=== PATIENT | female | born 1950 | race Caucasian/White ===

== ENCOUNTER 2020-03-27 09:28 | Inpatient (IN) | payer MEDICARE ==
[~2020-03-27] VITALS: Ht 165.1 cm; Wt 92.5 kg
[2020-03-27 10:15] LABS: BASOPHILS % (AUTO) 0.3 % (0.0-5.0); EOSINOPHILS % (AUTO) 0.1 % (0.0-8.0); HEMATOCRIT 36.6 % (36-48); MEAN CORPUSCULAR HEMOGLOBIN 29.9 pg (27.0-33.0); MEAN CORPUSCULAR HGB CONC 35.5 g/dL (32.0-36.0); MEAN CORPUSCULAR VOLUME 84.1 fL (79-99); MONOCYTES % (AUTO) 9.1 % (3.0-13.0); NEUTROPHILS % (AUTO) 85.1 % (40.0-77.0); PLATELET COUNT (AUTO) 194 K/uL (130-400); RED BLOOD CELL COUNT(AUTO) 4.35 MIL/uL (4.00-5.50)
[2020-03-27] MEDS ORDERED: ONDANSETRON HCL 4 MG/2 ML VIAL ONE (10:27)
[2020-03-27] MEDS ORDERED: MORPHINE SULFATE 4 MG/1ML SYG ONE ×2 (10:27→11:53)
[2020-03-27 10:40] LABS: BILIRUBIN,TOTAL 0.9 mg/dL (0.2-1.0); CREATININE 0.7 mg/dL (0.5-1.5); POTASSIUM 3.5 mmol/L (3.5-5.1); TOTAL PROTEIN, SERUM 6.9 g/dL (6.0-8.3)
[2020-03-27 10:54] LABS: APPEARANCE,URINE CLEAR (CLEAR); BILIRUBIN,URINE NEGATIVE (NEGATIVE); COLOR,URINE YELLOW (YELLOW); GLUCOSE, URINE (UA) NEGATIVE (NEGATIVE); KETONES,URINE 5 mg/dL (NEGATIVE); LEUKOCYTE ESTERASE ,URINE NEGATIVE (NEGATIVE); NITRATE,URINE NEGATIVE (NEGATIVE); OCCULT BLOOD,URINE SMALL (NEGATIVE); PROTEIN,URINE TRACE mg/dL (NEGATIVE); UROBILINOGEN,URINE 0.2 mg/dL (0.2-1.0)
[2020-03-27 11:14] LABS: BACTERIA,URINE Rare /HPF (None Seen); MUCUS,URINE Rare LPF (None Seen); RBC,URINE 0-1 /HPF (0-1); SQUAMOUS EPITHELIAL CELL,UR Rare /HPF (0-2); WBC,URINE 0-1 /HPF (0-1)
[2020-03-27] MEDS ORDERED: ETOMIDATE 2 MG/ML 10 ML VIAL ONE (11:16)
[2020-03-27] MEDS ORDERED: MIDAZOLAM HCL 5 MG/ML 2ML VIAL IV ONE (11:16)
[2020-03-27] MEDS ORDERED: SODIUM CHLORIDE 0.9% 1000ML 1,000 ML IV ONE (11:16)
[2020-03-27] MEDS ORDERED: ONDANSETRON HCL 4 MG/2 ML VIAL IVP PRN (12:30)
[2020-03-27] MEDS ORDERED: ACETAMINOPHEN-CODEINE 300/30MG TAB PO PRN (13:30)
[2020-03-27] MEDS ORDERED: ACETAMINOPHEN-CODEINE 300/30MG TAB ONE (13:44)
[2020-03-27] MEDS ORDERED: HYDRALAZINE HCL 20 MG/ML VIAL ONE (13:53)
[2020-03-27 14:45] VITALS: BP 178/53
[2020-03-27 14:54] LABS: THYROID STIMULATING HORMONE 2.06 uIU/mL (0.36-3.74)
[2020-03-27 16:00] VITALS: BP 139/68
[2020-03-27] MEDS: MORPHINE SULFATE 4 MG/1ML SYG IV PRN (16:53)
[2020-03-27 16:59] LABS: CREATININE 0.6 mg/dL (0.5-1.5); POTASSIUM 3.4 mmol/L (3.5-5.1)
[2020-03-27] MEDS ORDERED: POTASSIUM CHLORIDE 20MEQ/100ML 100 ML IV PRN (17:30)
[2020-03-27] MEDS ORDERED: LIDOCAINE HCL-MPF 1% 2ML VIAL IJ PRN (17:30)
[2020-03-27] MEDS ORDERED: POTASSIUM CHLORIDE 10% ELIXIR 20 MEQ/15 ML UDCUP PO PRN (17:30)
--- NOTE | 2020-03-27 17:45 | NUR ---
SPOKE TO DR TORREZ, HE IS AWARE OF CONSULT.
[2020-03-27 20:00] VITALS: BP 167/67
[2020-03-27] MEDS: SODIUM CHLORIDE 0.9% 1000ML 1,000 ML IV SCH (20:15)
[2020-03-27] MEDS: POTASSIUM CHLORIDE 20 MEQ ERTAB PO PRN ×2 (20:16→22:23)
[2020-03-27] MEDS: HYDRALAZINE HCL 20 MG/ML VIAL IV PRN (20:16)
[2020-03-27] MEDS: FAMOTIDINE/PF 20 MG/2 ML VIAL IV SCH (20:17)
[2020-03-27] MEDS ORDERED: DIVA500T52 PO (22:57)
[2020-03-27] MEDS ORDERED: ESOM20CA60 PO (22:57)
[2020-03-27] MEDS ORDERED: ASPI-1443 PO (22:57)
[2020-03-27] MEDS ORDERED: ATOR10 PO (22:57)
[2020-03-27] MEDS ORDERED: CITA-107 PO (22:57)
[2020-03-27] MEDS ORDERED: LISI1TAB29 PO (22:57)
[2020-03-27 23:01] LABS: CREATININE,URINE RANDOM 127 mg/dL (30-135); SODIUM,URINE RANDOM 39 mmol/l (40-220)
[2020-03-28] VITALS (8 sets, daily range): BP systolic 99–176; BP diastolic 59–72
[2020-03-28] MEDS: SODIUM CHLORIDE 0.9% 1000ML 1,000 ML IV SCH ×3 (01:29→17:53)
[2020-03-28 05:38] LABS: CREATININE 0.7 mg/dL (0.5-1.5); MAGNESIUM 1.9 mg/dL (1.80-2.40); POTASSIUM 3.8 mmol/L (3.5-5.1)
[2020-03-28] MEDS: MORPHINE SULFATE 4 MG/1ML SYG IV PRN ×2 (07:25→15:59)
[2020-03-28] MEDS: FAMOTIDINE/PF 20 MG/2 ML VIAL IV SCH ×2 (09:14→20:25)
[2020-03-28] MEDS: LISINOPRIL 20 MG TABLET PO SCH (13:24)
[2020-03-28] MEDS: HYDRALAZINE HCL 20 MG/ML VIAL IV PRN (17:03)
--- NOTE | 2020-03-28 19:03 | NUR ---
cm note- pt states lives alone, independent with adls and ambulation. No dme. No HH, pt can go with sister at pr, but prefers snf at [facility]. Choice letter obtained, will need MD order postop. cm to follow. Addendum: 03/28/20 at 1904 by ANIL VERGARA CM Amended: Links added.
[2020-03-28] MEDS: POTASSIUM CHLORIDE 20 MEQ ERTAB PO PRN (20:25)
[2020-03-28] MEDS: ATORVASTATIN CALCIUM 20 MG TABLET PO SCH (20:25)
[2020-03-28] MEDS: MORPHINE SULFATE 2 MG/ML 1ML SYG IVP PRN (20:30)
[2020-03-29] VITALS (7 sets, daily range): BP systolic 128–179; BP diastolic 55–65
[2020-03-29] MEDS: MORPHINE SULFATE 4 MG/1ML SYG IV PRN (02:08)
[2020-03-29] MEDS: HYDRALAZINE HCL 20 MG/ML VIAL IV PRN (04:07)
[2020-03-29] MEDS ORDERED: PANTOPRAZOLE SODIUM 40 MG TABLET.DR ONE (06:17)
[2020-03-29] MEDS: PANTOPRAZOLE SODIUM 40 MG TABLET.DR PO SCH (06:20)
[2020-03-29] MEDS: MORPHINE SULFATE 2 MG/ML 1ML SYG IVP PRN (06:31)
[2020-03-29 07:52] LABS: BASOPHILS % (AUTO) 0.3 % (0.0-5.0); EOSINOPHILS % (AUTO) 0.7 % (0.0-8.0); HEMATOCRIT 32.8 % (36-48); LYMPHOCYTES % (AUTO) 9.5 % (21.0-51.0); MEAN CORPUSCULAR HGB CONC 34.8 g/dL (32.0-36.0); MEAN CORPUSCULAR VOLUME 86.3 fL (79-99); MONOCYTES % (AUTO) 15.1 % (3.0-13.0); NEUTROPHILS % (AUTO) 74.1 % (40.0-77.0); PLATELET COUNT (AUTO) 158 K/uL (130-400); RED CELL DISTRIBUTION WIDTH 12.7 % (11.0-15.5); WHITE BLOOD COUNT (AUTO) 10.2 K/uL (4.8-10.8)
[2020-03-29 08:10] LABS: CREATININE 0.6 mg/dL (0.5-1.5); POTASSIUM 3.8 mmol/L (3.5-5.1)
[2020-03-29] MEDS: DIVALPROEX SODIUM 250 MG TABLET.DR PO SCH (09:20)
[2020-03-29] MEDS: LISINOPRIL 20 MG TABLET PO SCH (09:21)
[2020-03-29] MEDS: FAMOTIDINE/PF 20 MG/2 ML VIAL IV SCH ×2 (09:21→20:19)
--- NOTE | 2020-03-29 10:20 | NUR ---
DR. TENA PAGED AWARE OF PT IS CLEARED FOR SX ORDERS ENTERED.
[2020-03-29] MEDS: SODIUM CHLORIDE 0.9% 1000ML 1,000 ML IV SCH (12:47)
--- NOTE | 2020-03-29 14:45 | NUR ---
CM Note: DCP to GP pending MD order CM met w/pt still agreeable for GP after surgery. pending ORIF left ankle today w/Dr Mays. Pending MD order for SNF. Primary nurse aware. CM to cont to follow up.
[2020-03-29] MEDS: HYDROCODONE/ACETAMINOPHEN 5/325 MG TAB PO PRN ×2 (14:57→20:19)
[2020-03-29] MEDS: POTASSIUM CHLORIDE 20 MEQ ERTAB PO PRN ×2 (20:18→23:56)
[2020-03-29] MEDS: ATORVASTATIN CALCIUM 20 MG TABLET PO SCH (20:19)
[2020-03-29] MEDS ORDERED: LACTULOSE 20 GM/30 ML UDCUP PO PRN (20:45)
[2020-03-29] MEDS: POLYETHYLENE GLYCOL 3350 17 GM POWD.PACK PO SCH (21:23)
[2020-03-30] VITALS (27 sets, daily range): BP systolic 127–199; BP diastolic 51–82
--- NOTE | 2020-03-30 00:10 | NUR ---
03/29/20 1949: PATIENT COMPLAINING OF CONSTIPATION SINCE THE 8TH. ALSO REQUESTING FOR DNR ORDER TO BE PLACED IN DUE TO HAVING SURGERY TOMORROW. I PAGED AJ CAMP HOUSEKEEPER VIA ANSWERING SERVICE, ANSWERED WITHIN A FEW SECONDS.INFORMED HIM OF ABOVE, PATIENT'S COMPLAIN AND REQUEST, ALSO INFORMED HIM PATIENT STATES TAKEN MIRALIX ONE PACKET DAILY AT HOME TO PREVENT CONSTIPATION. ORDERS RECEIVED FOR MIRALIX, AND LACTULOSE. PATIENT MADE AWARE OF NEW ORDERS, VERBALIZED UNDERSTANDING. 2200: PATIENT'S SALINE LOCK SITE WITH SOME SWELLING, FLUSHED AGAIN, NOTED PATIENT WITH PAIN. PATIENT STATED WANTED SALINE LOCK REMOVED, BUT DID NOT WANT IT CHANGED TILL SURGERY TOMORROW. 0010: PATIENT HAD RECEIVED LAXATIVES, X2 03/29/20 2150, HAD LARGE BOWEL MOVEMENT AT THIS TIME.
[2020-03-30] MEDS: SODIUM CHLORIDE 0.9% 1000ML 1,000 ML IV SCH ×3 (00:33→20:20)
[2020-03-30] MEDS: HYDROCODONE/ACETAMINOPHEN 5/325 MG TAB PO PRN ×2 (03:28→12:28)
--- NOTE | 2020-03-30 03:28 | NUR ---
PATIENT REQUESTING MEDICATION FOR PAIN, REFUSED TO HAVE IV RESTARTED REQUESTED NORCO, TO BE SWALLOWED WITH SCANT AMOUNT OF WATER. PATIENT DRANK APPROXIMATELY 30 MLS.
[2020-03-30] MEDS: PANTOPRAZOLE SODIUM 40 MG TABLET.DR PO SCH (04:40)
[2020-03-30 06:06] LABS: BASOPHILS % (AUTO) 0.2 % (0.0-5.0); EOSINOPHILS % (AUTO) 3.8 % (0.0-8.0); HEMATOCRIT 31.6 % (36-48); LYMPHOCYTES % (AUTO) 15.7 % (21.0-51.0); MEAN CORPUSCULAR HEMOGLOBIN 29.4 pg (27.0-33.0); MEAN CORPUSCULAR HGB CONC 33.9 g/dL (32.0-36.0); MEAN CORPUSCULAR VOLUME 86.8 fL (79-99); MONOCYTES % (AUTO) 12.5 % (3.0-13.0); NEUTROPHILS % (AUTO) 67.5 % (40.0-77.0); PLATELET COUNT (AUTO) 168 K/uL (130-400); RED BLOOD CELL COUNT(AUTO) 3.64 MIL/uL (4.00-5.50); RED CELL DISTRIBUTION WIDTH 12.8 % (11.0-15.5); WHITE BLOOD COUNT (AUTO) 9.5 K/uL (4.8-10.8)
[2020-03-30 06:28] LABS: INR 0.91 (0.85-1.15); PARTIAL THROMBOPLASTIN TIME 27.7 SEC (26.3-35.5); PROTHROMBIN TIME 9.9 SEC (9.6-11.6)
[2020-03-30 06:36] LABS: BILIRUBIN,TOTAL 0.9 mg/dL (0.2-1.0); CREATININE 0.5 mg/dL (0.5-1.5); POTASSIUM 4.6 mmol/L (3.5-5.1); TOTAL PROTEIN, SERUM 5.8 g/dL (6.0-8.3)
[2020-03-30] MEDS: LISINOPRIL 20 MG TABLET PO SCH (07:25)
[2020-03-30] MEDS: MORPHINE SULFATE 4 MG/1ML SYG IV PRN (08:51)
[2020-03-30] MEDS: HYDRALAZINE HCL 20 MG/ML VIAL IV PRN ×2 (11:56→15:41)
[2020-03-30] MEDS ORDERED: LACTATED RINGERS 1000ML 1,000 ML IV ONE (12:48)
[2020-03-30] MEDS ORDERED: FENTANYL CITRATE PF 50 MCG/1 ML 5ML AMP IV ONE (13:35)
[2020-03-30] MEDS ORDERED: LIDOCAINE PF 2% 5ML ABBOJECT ONE (13:35)
[2020-03-30] MEDS ORDERED: PROPOFOL 10 MG/ML 20ML VIAL IV ONE (13:35)
[2020-03-30] MEDS ORDERED: MIDAZOLAM HCL 1 MG/ML 2ML VIAL ONE (13:35)
[2020-03-30] MEDS ORDERED: ROCURONIUM 10MG/1ML SYR 10 MG/ML ML ONE (13:35)
[2020-03-30] MEDS ORDERED: FENTANYL CITRATE PF 50 MCG/1 ML 2ML VIAL ONE (13:42)
--- NOTE | 2020-03-30 13:45 | NUR ---
ANESTHESIA patient c/o pain left ankle ,Enrique Devries OUTREACH MANAGER ordered pain med given by Sami Fallon RN Addendum: 03/30/20 at 1352 by JANNIE THURMAN RN RN Amended: Links added.
[2020-03-30] MEDS ORDERED: KETAMINE 50MG/ML SYRINGE 50 MG/ML DISP.SYRIN IV ONE (13:52)
[2020-03-30] MEDS ORDERED: CEFAZOLIN SODIUM 1 GM VIAL IVP ONE (14:10)
[2020-03-30] MEDS ORDERED: ONDANSETRON HCL 4 MG/2 ML VIAL ONE (14:55)
[2020-03-30] MEDS ORDERED: DEXAMETHASONE SOD PHOSPHATE 10MG/ML 1ML VIAL ONE (14:55)
[2020-03-30] MEDS ORDERED: NEOSTIGMINE 5MG/5ML SYR IV ONE (14:55)
[2020-03-30] MEDS ORDERED: GLYCOPYRROLATE 1 MG/5 ML SYRINGE ONE (14:55)
[2020-03-30] MEDS ORDERED: METOPROLOL TARTRATE 1 MG/ML 5ML VIAL IV ONE (15:15)
[2020-03-30] MEDS ORDERED: LABETALOL 20 MG/4 ML DISP.SYRIN IV ONE (15:48)
--- NOTE | 2020-03-30 16:40 | NUR ---
CM NOTE/GP REFERRAL NEW ORDER FOR SNF, KATT SIGNED PREVIOUSLY FOR [facility] PACKET AND COVID ASSESSMENT FAXED AND CONFIRMED RECEIVED. PENDING PASRR. JUAN MADE AWARE, WILL REVIEW. PATIENT PENDING PT EVAL AND NOTES. CM TO FOLLOW, PENDING APPROVAL.
[2020-03-30] MEDS: FAMOTIDINE/PF 20 MG/2 ML VIAL IV SCH ×2 (18:15→20:18)
[2020-03-30] MEDS: POLYETHYLENE GLYCOL 3350 17 GM POWD.PACK PO SCH (18:15)
[2020-03-30] MEDS: DIVALPROEX SODIUM 250 MG TABLET.DR PO SCH (18:15)
[2020-03-30] MEDS: ATORVASTATIN CALCIUM 20 MG TABLET PO SCH (20:18)
--- NOTE | 2020-03-30 20:20 | NUR ---
MEDS SHIFT ASSESSMENT DONE, PLEASE REFER TO CHART. PT COMPLAINTS OF POST OP PAINS. DUE MEDS ADMINISTERED, TYLENOL #3 GIVEN FOR PAINS. COLD PACKS APPLIED TO LEFT ANKLE SX SITE. KEPT ELEVATED IN BED. CALL LIGHT WITHIN REACH. WILL RE-ASSESS PT. Addendum: 03/30/20 at 2316 by ZAMZAM MADRID RN RN Amended: Links added.
[2020-03-30] MEDS: MORPHINE SULFATE 2 MG/ML 1ML SYG IVP PRN (22:59)
--- NOTE | 2020-03-30 22:59 | NUR ---
PAIN PT CALLS FOR PAIN MEDICATION. PCP IN AND RE-POSITIONED PT'S FEET. KEPT COLD PACKS ON LEFT ANKLE. V/S MONITORED, STABLE. MEDICATED WITH MORPHINE IV. WILL RE-ASSESS PT.
[2020-03-31] MEDS: SODIUM CHLORIDE 0.9% 1000ML 1,000 ML IV SCH ×2 (00:05→07:12)
--- NOTE | 2020-03-31 01:54 | NUR ---
ROUNDS PT RESTING WELL, FAIRLY ASLEEP WITH RESPIRATIONS EVEN AND UNLABORED. NO NOTED DISTRESS. KEPT UNDISTURBED FOR NOW. CALL LIGHT WITHIN REACH. WILL MONITOR PT.
[2020-03-31] MEDS: HYDRALAZINE HCL 20 MG/ML VIAL IV PRN (02:36)
[2020-03-31] MEDS: HYDROCODONE/ACETAMINOPHEN 5/325 MG TAB PO PRN ×2 (02:36→14:45)
[2020-03-31 03:00] VITALS: BP 164/63
[2020-03-31] MEDS: PANTOPRAZOLE SODIUM 40 MG TABLET.DR PO SCH (05:57)
[2020-03-31 06:15] LABS: HEMATOCRIT 33.5 % (36-48); LYMPHOCYTES % (AUTO) 5.2 % (21.0-51.0); MEAN CORPUSCULAR HEMOGLOBIN 29.1 pg (27.0-33.0); MEAN CORPUSCULAR HGB CONC 33.7 g/dL (32.0-36.0); MEAN CORPUSCULAR VOLUME 86.3 fL (79-99); MONOCYTES % (AUTO) 6.3 % (3.0-13.0); PLATELET COUNT (AUTO) 206 K/uL (130-400); RED BLOOD CELL COUNT(AUTO) 3.88 MIL/uL (4.00-5.50); RED CELL DISTRIBUTION WIDTH 12.8 % (11.0-15.5); WHITE BLOOD COUNT (AUTO) 11.3 K/uL (4.8-10.8)
[2020-03-31 06:27] LABS: BILIRUBIN,TOTAL 0.8 mg/dL (0.2-1.0); CREATININE 0.7 mg/dL (0.5-1.5); POTASSIUM 4.2 mmol/L (3.5-5.1)
[2020-03-31] MEDS: MORPHINE SULFATE 2 MG/ML 1ML SYG IVP PRN (06:27)
--- NOTE | 2020-03-31 06:27 | NUR ---
PAIN PT COMPLAINTS OF PAINS TO SX FOOT AREA. MEDICATED WITH MORPHINE IV. KEPT LEG ELEVATED. PT REFUSED SCD'S FOR NOW. TURNED OF MACHINE. COLD PACKS APPLIED TO SX SITE ON LEFT FOOT. ENCOURAGED TO RELAX AND TAKE DEEP BREATH.
[2020-03-31 08:00] VITALS: BP 160/60
--- NOTE | 2020-03-31 08:00 | NUR ---
AM SHIFT ASSESSMENT. SLINT/CAST IN PLACE TO LT. LOWER LEG. TOES ARE EXPOSED WITH GOOD COLOR AND ARE WARM TO TOUCH , ABLE TO WIGGLE THEM EASY.
--- NOTE | 2020-03-31 09:00 | NUR ---
IVF STOPPED NOW PER ORDER OF .
[2020-03-31] MEDS: DIVALPROEX SODIUM 250 MG TABLET.DR PO SCH (09:19)
[2020-03-31] MEDS: POLYETHYLENE GLYCOL 3350 17 GM POWD.PACK PO SCH (09:19)
[2020-03-31] MEDS: FAMOTIDINE/PF 20 MG/2 ML VIAL IV SCH (09:19)
[2020-03-31] MEDS: LISINOPRIL 20 MG TABLET PO SCH (09:19)
[2020-03-31 12:00] VITALS: BP 125/62
--- NOTE | 2020-03-31 14:05 | NUR ---
CM NOTE/GP APPROVED PER JUAN AT [facility], PATIENT APPROVED AT FACILITY. WILL TRANSFER VIA EMS, PRIMARY NURSE LEI JONES, MADE AWARE.
[2020-03-31 16:00] VITALS: BP 157/59
--- NOTE | 2020-03-31 18:26 | NUR ---
REPORT CALLED IN EARLIER TO [facility], TALKED TO HERRERA YANCEY LVN. PT. NOW DISCHARGED TO [facility], SALINE LOCK REMOVED AND DISCHARGE INST EXPLAINED, VERBALIZES UNDERSTANDING.
== END 2020-03-31 18:25 | DRG 493 ==
LOC: EDH 09:28 → EDHIP 12:23 → 3AH 14:01
PROVIDERS: ADMIT Internal Medicine; ATTEND Internal Medicine
PROC: 0QSK04Z Reposition Left Fibula with Internal Fixation Device, Open Approach (ICD-10-PCS; principal; 2020-03-30 13:53)
PROC: BW1C1ZZ Fluoroscopy of Lower Extremity using Low Osmolar Contrast (ICD-10-PCS; 2020-03-30 13:53)
DX: S82.842A Displaced bimalleolar fracture of left lower leg, initial encounter for closed fracture (principal); E22.2 Syndrome of inappropriate secretion of antidiuretic hormone; M62.82 Rhabdomyolysis; F31.9 Bipolar disorder, unspecified; E87.8 Other disorders of electrolyte and fluid balance, not elsewhere classified; N19 Unspecified kidney failure; E87.6 Hypokalemia; I10 Essential (primary) hypertension; I25.10 Atherosclerotic heart disease of native coronary artery without angina pectoris; D72.829 Elevated white blood cell count, unspecified; W19.XXXA Unspecified fall, initial encounter; Y93.89 Activity, other specified; Y92.89 Other specified places as the place of occurrence of the external cause; Y99.8 Other external cause status; X50.1XXA Overexertion from prolonged static or awkward postures, initial encounter; Z87.891 Personal history of nicotine dependence; Z90.710 Acquired absence of both cervix and uterus
CPT/HCPCS: 36415; 71045; 72170; 73600; 73610; 80048; 80053; 81001; 82550; 82570; 83735; 83880; 83935; 84145; 84300; 84443; 84484; 84540; 85025; 85610; 85730; 93005; 96374; 97039; G0378; J0360; J0690; J1100; J2001; J2250; J2270; J2405; J2704; J2710; J3010; J3480; J3490; J7030; J7120

== ENCOUNTER → 2022-10-24 | Outpatient (CLI) | payer MEDICARE, OTHER ==
[~2022-10-24] MED LIST: ASPI-1443 PO; ATOR10 PO; CITA-107 PO; DIVA500T52 PO; ESOM20CA60 PO; LISI1TAB53 PO
[2022-10-24 11:41] LABS: ALBUMIN 3.7 g/dL (3.5-5.0); CREATININE 1.2 mg/dL (0.5-1.5); POTASSIUM 3.9 mmol/L (3.5-5.1); THYROID STIMULATING HORMONE 0.91 uIU/mL (0.36-3.74); TOTAL PROTEIN, SERUM 7.1 g/dL (6.0-8.3)
== END | disposition home or self-care (01) ==
LOC: RAH 10:05
PROVIDERS: ATTEND Student in an Organized Health Care Education/Training Program
DX: I10 Essential (primary) hypertension (principal); E78.2 Mixed hyperlipidemia; I73.9 Peripheral vascular disease, unspecified; R42 Dizziness and giddiness; R00.2 Palpitations
CPT/HCPCS: 80053; 80061; 84443; 93925

== ENCOUNTER → 2022-11-08 | Outpatient (CLI) | payer OTHER ==
[~2022-11-08] MED LIST changes: +B CO PO; +CILO100T3 PO; +CILO50TA2 PO; +CLOP-31 PO; +DULO60CA45 PO; +LANS30CA53 PO; +LISI20TA24 PO; +MAGN400T25 PO; +OMEP20TA2 PO; +PANT40TA54 PO; +QUET200T30 PO; +SUCR1TAB28 PO; +[UNRECOGNIZED DRUG - OTHER] PO
== END | disposition home or self-care (01) ==
LOC: SHCH 10:00
PROVIDERS: ATTEND Student in an Organized Health Care Education/Training Program
DX: R01.1 Cardiac murmur, unspecified (principal)
CPT/HCPCS: 93306

== ENCOUNTER 2022-11-12 02:54 | Emergency (ER) | payer OTHER ==
[~2022-11-12] VITALS: Ht 160 cm; Wt 77.1 kg
[~2022-11-12 02:54] MED LIST changes: -ASPI-1443 PO; -B CO PO; -CILO100T3 PO; -CILO50TA2 PO; -CITA-107 PO; -DIVA500T52 PO; -ESOM20CA60 PO; -LANS30CA53 PO; -LISI1TAB53 PO; -MAGN400T25 PO; -OMEP20TA2 PO
[2022-11-12 04:00] LABS: BASOPHILS % (AUTO) 0.7 % (0.0-5.0); HEMATOCRIT 30.8 % (36-48); LYMPHOCYTES % (AUTO) 22.7 % (21.0-51.0); MEAN CORPUSCULAR HGB CONC 28.9 g/dL (32.0-36.0); MEAN CORPUSCULAR VOLUME 69.4 fL (79-99); MONOCYTES % (AUTO) 7.6 % (3.0-13.0); NEUTROPHILS % (AUTO) 64.3 % (40.0-77.0); PLATELET COUNT (AUTO) 339 K/uL (130-400); RED BLOOD CELL COUNT(AUTO) 4.44 MIL/uL (4.00-5.50); RED CELL DISTRIBUTION WIDTH 20.7 % (11.0-15.5); WHITE BLOOD COUNT (AUTO) 7.6 K/uL (4.8-10.8)
[2022-11-12 04:18] LABS: CARBON DIOXIDE 28 mmol/L (21-32); CHLORIDE 101 mmol/L (101-111); GLOMERULAR FILTR. RATE CALC 58 mL/min (>60); GLUCOSE,RANDOM 131 mg/dL (70-105); POTASSIUM 3.5 mmol/L (3.5-5.1); SODIUM SERUM 139 mmol/L (136-145); UREA NITROGEN, BLOOD 9 mg/dL (7-18)
[2022-11-12 04:22] LABS: PROTHROMBIN TIME 10.9 SEC (9.6-11.6)
[2022-11-12 04:23] LABS: PARTIAL THROMBOPLASTIN TIME 25.4 SEC (26.3-35.5)
[2022-11-12 04:27] LABS: ALANINE AMINOTRANSFERASE 37 U/L (12-78); ALBUMIN 3.3 g/dL (3.5-5.0); ALCOHOL, BLOOD < 3 mg/dL (0-10); ASPARTATE AMINOTRANSFERASE 27 U/L (10-37); TOTAL PROTEIN, SERUM 6.1 g/dL (6.0-8.3)
[2022-11-12] MEDS ORDERED: GABAPENTIN 300 MG CAPSULE ONE (04:50)
[2022-11-12] MEDS ORDERED: KCL 20 MEQ ERTAB PO ONE (05:00)
[2022-11-12] MEDS ORDERED: MAGNESIUM 2GM PREMIX 50ML 50 ML IV SCH (05:00)
[2022-11-12] MEDS ORDERED: MAGN400T25 PO (05:53)
[2022-11-12 07:35] VITALS: BP 110/72
[2022-11-12] MEDS ORDERED: GABAPENTIN 300 MG CAPSULE PO SCH (09:00)
== END 2022-11-12 07:49 | disposition home or self-care (01) ==
LOC: EDH 02:54
DX: E83.42 Hypomagnesemia (principal); M62.838 Other muscle spasm; I10 Essential (primary) hypertension; E11.51 Type 2 diabetes mellitus with diabetic peripheral angiopathy without gangrene; Z79.82 Long term (current) use of aspirin; Z79.899 Other long term (current) drug therapy; Z90.710 Acquired absence of both cervix and uterus; Z90.49 Acquired absence of other specified parts of digestive tract
CPT/HCPCS: 99284; 96365; 83735; 80053; 85025; 85610; 85730; 83605; 82010; 36415; J3475

== ENCOUNTER 2023-01-02 06:02 | Day surgery (SDC) | payer OTHER ==
[2022-12-29 10:14] LABS: BASOPHILS % (AUTO) 0.6 % (0.0-5.0); HEMATOCRIT 39.2 % (36-48); LYMPHOCYTES % (AUTO) 14.4 % (21.0-51.0); MEAN CORPUSCULAR HEMOGLOBIN 24.5 pg (27.0-33.0); MEAN CORPUSCULAR HGB CONC 30.6 g/dL (32.0-36.0); MEAN CORPUSCULAR VOLUME 80.2 fL (79-99); MONOCYTES % (AUTO) 7.5 % (3.0-13.0); NEUTROPHILS % (AUTO) 74.1 % (40.0-77.0); PLATELET COUNT (AUTO) 246 K/uL (130-400); RED BLOOD CELL COUNT(AUTO) 4.89 MIL/uL (4.00-5.50); RED CELL DISTRIBUTION WIDTH 24.4 % (11.0-15.5); WHITE BLOOD COUNT (AUTO) 5.4 K/uL (4.8-10.8)
[2022-12-29 10:18] VITALS: BP 194/90
[2022-12-29 10:21] LABS: CREATININE 0.8 mg/dL (0.5-1.5); POTASSIUM 3.9 mmol/L (3.5-5.1)
[2022-12-29 10:23] LABS: APPEARANCE,URINE CLEAR (CLEAR); BILIRUBIN,URINE NEGATIVE (NEGATIVE); COLOR,URINE LIGHT-YELLOW (YELLOW); GLUCOSE, URINE (UA) NEGATIVE (NEGATIVE); KETONES,URINE NEGATIVE (NEGATIVE); LEUKOCYTE ESTERASE ,URINE NEGATIVE Leu/uL (NEGATIVE); NITRATE,URINE NEGATIVE (NEGATIVE); OCCULT BLOOD,URINE NEGATIVE (NEGATIVE); PROTEIN,URINE NEGATIVE (NEGATIVE); UROBILINOGEN,URINE 0.2 mg/dL (0.2-1.0)
[2022-12-29 10:24] LABS: INR 0.94 (0.85-1.15); PROTHROMBIN TIME 10.3 SEC (9.6-11.6)
[2022-12-29 10:25] LABS: PARTIAL THROMBOPLASTIN TIME 25.7 SEC (26.3-35.5)
[2022-12-29 10:51] LABS: B-TYPE NATRIURETIC PEPTIDE 47 pg/mL (0-100)
[2023-01-02] VITALS (10 sets, daily range): BP systolic 105–164; BP diastolic 45–91
[~2023-01-02] VITALS: Ht 160 cm; Wt 77.1 kg
[~2023-01-02 06:02] MED LIST changes: +MAGN400T25 PO
[2023-01-02] MEDS ORDERED: 0.9%NACL 1000ML 1,000 ML IV ONE (06:09)
[2023-01-02] MEDS ORDERED: FENTANYL CITRATE PF 50 MCG/1 ML 2ML VIAL ONE (07:07)
[2023-01-02] MEDS ORDERED: NITROGLYCERIN 50MG VIAL ONE (07:07)
[2023-01-02] MEDS ORDERED: MIDAZOLAM HCL 1 MG/ML 2ML VIAL ONE ×2 (07:07→07:45)
[2023-01-02] MEDS ORDERED: IODIXANOL 320 MG/ML 100 ML VIAL ONE (07:07)
[2023-01-02] MEDS ORDERED: HEPARIN 10,000 UNIT/10ML (1,000 UNIT/ML) VIAL ONE (07:07)
[2023-01-02] MEDS ORDERED: LIDOCAINE HCL 400MG/20ML VIAL ONE (07:08)
[2023-01-02] MEDS ORDERED: DiphenhydrAMINE HCL 50 MG/ML VIAL ONE (07:43)
[2023-01-02] MEDS ORDERED: HYDRALAZINE 20MG/ML VIAL ONE ×2 (07:51→08:38)
[2023-01-02] MEDS ORDERED: NICARDIPINE 25MG INJ IV ONE (08:10)
[2023-01-02] MEDS ORDERED: LABETALOL 20MG SYG IV ONE (08:12)
[2023-01-02] MEDS ORDERED: GLUCAGON 1MG KIT 1 MG ML IM PRN (08:30)
[2023-01-02] MEDS ORDERED: DEXTROSE 50%-WATER 50 ML DISP.SYRIN IV PRN (08:30)
[2023-01-02] MEDS ORDERED: 0.9%NACL 1000ML 1,000 ML IV SCH (08:30)
[2023-01-02] MEDS ORDERED: TRAZ-187 PO (13:22)
[2023-01-02] MEDS ORDERED: POTA-79 PO (13:22)
[2023-01-02] MEDS ORDERED: FURO20TA6 PO (13:22)
== END 2023-01-02 16:33 | disposition home or self-care (01) ==
LOC: DAH 06:02
PROVIDERS: ATTEND Student in an Organized Health Care Education/Training Program
DX: I70.213 Atherosclerosis of native arteries of extremities with intermittent claudication, bilateral legs (principal); I25.810 Atherosclerosis of coronary artery bypass graft(s) without angina pectoris; I10 Essential (primary) hypertension; E78.2 Mixed hyperlipidemia; Z98.890 Other specified postprocedural states; Z79.899 Other long term (current) drug therapy; Z90.49 Acquired absence of other specified parts of digestive tract; Z79.82 Long term (current) use of aspirin; Z90.710 Acquired absence of both cervix and uterus; Z79.01 Long term (current) use of anticoagulants; Z87.891 Personal history of nicotine dependence; Z80.49 Family history of malignant neoplasm of other genital organs
CPT/HCPCS: 80048; 83880; 85025; 85610; 85730; 81003; 36415; 71045; 93005; 75716; 36246; 96360; 96361; C1894 ×2; C1769; J1200; J3010; J3490 ×3; J7030; J0360 ×2; J2250; J1644; Q9967; A4215; A4335; A4222; A4221; A4663; A4216; A4606; A4223 ×3; A4520; A4554; 99156; 99157

== ENCOUNTER → 2023-02-21 | Outpatient (CLI) | payer OTHER ==
[~2023-02-21] MED LIST changes: +CARV6.25 PO; +CILO100T3 PO; -CLOP-31 PO; +CLOP75TA32 PO; +FERR324T PO; +FOLI1TAB85 PO; +FURO20TA6 PO; -LISI20TA24 PO; +LISI40TA9 PO; -MAGN400T25 PO; +POTA-79 PO; -QUET200T30 PO; -SUCR1TAB28 PO; +TRAZ-187 PO; -[UNRECOGNIZED DRUG - OTHER] PO
[2023-02-21 12:20] LABS: BASOPHILS % (AUTO) 0.8 % (0.0-5.0); EOSINOPHILS % (AUTO) 10.6 % (0.0-8.0); HEMATOCRIT 37.8 % (36-48); LYMPHOCYTES % (AUTO) 12.5 % (21.0-51.0); MEAN CORPUSCULAR HEMOGLOBIN 27.9 pg (27.0-33.0); MEAN CORPUSCULAR HGB CONC 31.7 g/dL (32.0-36.0); MEAN CORPUSCULAR VOLUME 87.9 fL (79-99); MONOCYTES % (AUTO) 8.7 % (3.0-13.0); NEUTROPHILS % (AUTO) 67.1 % (40.0-77.0); PLATELET COUNT (AUTO) 355 K/uL (130-400); RED CELL DISTRIBUTION WIDTH 14.5 % (11.0-15.5); WHITE BLOOD COUNT (AUTO) 9.9 K/uL (4.8-10.8)
[2023-02-21 12:42] LABS: ALBUMIN 3.9 g/dL (3.5-5.0); CREATININE 1.4 mg/dL (0.5-1.5); POTASSIUM 4.7 mmol/L (3.5-5.1); TOTAL PROTEIN, SERUM 7.3 g/dL (6.0-8.3)
[2023-02-21 12:44] LABS: % IRON SATURATION 13.8 % (22-44)
== END | disposition home or self-care (01) ==
LOC: LAB 10:02
PROVIDERS: ATTEND Student in an Organized Health Care Education/Training Program
DX: I73.9 Peripheral vascular disease, unspecified (principal); E78.2 Mixed hyperlipidemia; E11.9 Type 2 diabetes mellitus without complications; I10 Essential (primary) hypertension; Z79.899 Other long term (current) drug therapy
CPT/HCPCS: 36415; 80053; 80061; 82746; 83036; 83540; 83550; 85025

== ENCOUNTER → 2023-02-27 | Outpatient (CLI) | payer OTHER ==
[~2023-02-27] MED LIST changes: +POLY17PO4 PO; +SUCR1TAB2 PO
== END | disposition home or self-care (01) ==
LOC: RAH 14:15
PROVIDERS: ATTEND Student in an Organized Health Care Education/Training Program
DX: M79.81 Nontraumatic hematoma of soft tissue (principal)
CPT/HCPCS: 76882

== ENCOUNTER 2023-03-01 22:35 | Inpatient (IN) | payer OTHER ==
[~2023-03-01] VITALS: Ht 160 cm; Wt 78.0 kg
[~2023-03-01 22:35] MED LIST changes: -POLY17PO4 PO; -SUCR1TAB2 PO
[2023-03-01 23:05] VITALS: BP 130/54
[2023-03-01] MEDS ORDERED: MORPHINE 4 MG SYG IV PRN (23:30)
[2023-03-01] MEDS ORDERED: LACTATED RINGERS 1000ML 1,000 ML IV SCH (23:30)
[2023-03-01] MEDS ORDERED: ONDANSETRON 4MG INJ IV PRN (23:30)
[2023-03-01] MEDS ORDERED: MORPHINE 2 MG SYG IV PRN (23:30)
[2023-03-01] MEDS ORDERED: ACETAMINOPHEN 325 MG TAB PO PRN ×2 (23:30)
[2023-03-01] MEDS ORDERED: VANCOMYCIN 1G/250ML KIT 250 ML IV ONE (23:45)
[2023-03-02] MEDS ORDERED: VANCOMYCIN PROTOCOL PER PHARMACY IV SCH
[2023-03-02 00:01] LABS: BASOPHILS % (AUTO) 0.7 % (0.0-5.0); EOSINOPHILS % (AUTO) 8.5 % (0.0-8.0); HEMATOCRIT 28.8 % (36-48); MEAN CORPUSCULAR HEMOGLOBIN 27.8 pg (27.0-33.0); MEAN CORPUSCULAR HGB CONC 31.6 g/dL (32.0-36.0); MEAN CORPUSCULAR VOLUME 88.1 fL (79-99); MONOCYTES % (AUTO) 12.4 % (3.0-13.0); NEUTROPHILS % (AUTO) 60.2 % (40.0-77.0); PLATELET COUNT (AUTO) 225 K/uL (130-400); RED BLOOD CELL COUNT(AUTO) 3.27 MIL/uL (4.00-5.50); RED CELL DISTRIBUTION WIDTH 13.2 % (11.0-15.5); WHITE BLOOD COUNT (AUTO) 5.9 K/uL (4.8-10.8)
[2023-03-02 00:20] LABS: CREATININE 1.2 mg/dL (0.5-1.5); TOTAL PROTEIN, SERUM 5.9 g/dL (6.0-8.3)
[2023-03-02 00:33] LABS: POTASSIUM 2.7 mmol/L (3.5-5.1)
[2023-03-02 00:34] LABS: B-TYPE NATRIURETIC PEPTIDE 14 pg/mL (0-100)
[2023-03-02] MEDS ORDERED: POLY17PO4 PO (00:41)
[2023-03-02] MEDS: CEFEPIME HCL 1 GM VIAL IVP SCH ×3 (00:57→16:28)
[2023-03-02] MEDS ORDERED: KCL 20 MEQ ERTAB PO ONE (02:00)
[2023-03-02 03:34] VITALS: BP 132/67
[2023-03-02 04:50] LABS: APPEARANCE,URINE CLEAR (CLEAR); BILIRUBIN,URINE NEGATIVE (NEGATIVE); COLOR,URINE COLORLESS (YELLOW); GLUCOSE, URINE (UA) NEGATIVE (NEGATIVE); KETONES,URINE NEGATIVE (NEGATIVE); LEUKOCYTE ESTERASE ,URINE NEGATIVE Leu/uL (NEGATIVE); NITRATE,URINE NEGATIVE (NEGATIVE); OCCULT BLOOD,URINE NEGATIVE (NEGATIVE); PH,URINE 5.5 (5.0-8.0); PROTEIN,URINE NEGATIVE (NEGATIVE); UROBILINOGEN,URINE 0.2 mg/dL (0.2-1.0)
[2023-03-02] MEDS ORDERED: ZOSYN 3.375GM+NS 50ML 50 ML IVPB SCH (05:00)
[2023-03-02 06:33] VITALS: BP 133/60
[2023-03-02 07:13] LABS: BASOPHILS % (AUTO) 0.6 % (0.0-5.0); EOSINOPHILS % (AUTO) 7.7 % (0.0-8.0); HEMATOCRIT 28.1 % (36-48); LYMPHOCYTES % (AUTO) 16.3 % (21.0-51.0); MEAN CORPUSCULAR HEMOGLOBIN 27.9 pg (27.0-33.0); MEAN CORPUSCULAR HGB CONC 31.7 g/dL (32.0-36.0); MEAN CORPUSCULAR VOLUME 88.1 fL (79-99); MONOCYTES % (AUTO) 9.7 % (3.0-13.0); NEUTROPHILS % (AUTO) 65.3 % (40.0-77.0); PLATELET COUNT (AUTO) 192 K/uL (130-400); RED BLOOD CELL COUNT(AUTO) 3.19 MIL/uL (4.00-5.50); RED CELL DISTRIBUTION WIDTH 13.2 % (11.0-15.5); WHITE BLOOD COUNT (AUTO) 4.7 K/uL (4.8-10.8)
[2023-03-02 07:36] LABS: INR 0.97 (0.85-1.15); PROTHROMBIN TIME 10.6 SEC (9.6-11.6)
[2023-03-02 07:37] LABS: PARTIAL THROMBOPLASTIN TIME 25.9 SEC (26.3-35.5)
[2023-03-02 07:41] LABS: CREATININE 0.9 mg/dL (0.5-1.5); MAGNESIUM 1.6 mg/dL (1.80-2.40); PHOSPHORUS 3.8 mg/dL (2.5-4.9); POTASSIUM 3.9 mmol/L (3.5-5.1)
[2023-03-02] MEDS: HEPARIN 5,000 UNIT VIAL SQ SCH ×2 (08:12→08:13)
[2023-03-02] MEDS ORDERED: FAMOTIDINE 20MG VIAL IV SCH (09:00)
[2023-03-02] MEDS ORDERED: MAGNESIUM 2GM PREMIX 50ML 50 ML IV PRN (10:30)
[2023-03-02 12:09] VITALS: BP 151/73
[2023-03-02] MEDS ORDERED: LIDOCAINE HCL 1% 20 ML VIAL ONE (15:57)
[2023-03-02 16:00] VITALS: BP 151/73
[2023-03-02] MEDS ORDERED: VANCOMYCIN 1G/250ML KIT 250 ML IV SCH (21:00)
[2023-03-03] MEDS ORDERED: KCL 20 MEQ ERTAB PO SCH (09:00)
[2023-03-05] MEDS ORDERED: SUCR1TAB2 PO (22:45)
== END 2023-03-02 17:25 | disposition left against medical advice (07) | DRG 920 ==
LOC: EDH 22:35 → 2DH 22:36
PROVIDERS: ADMIT Internal Medicine; ATTEND Internal Medicine
PROC: 0Y9H3ZZ Drainage of Right Lower Leg, Percutaneous Approach (ICD-10-PCS; principal; 2023-03-02)
DX: L76.34 Postprocedural seroma of skin and subcutaneous tissue following other procedure (principal); L03.115 Cellulitis of right lower limb; Z20.822 Contact with and (suspected) exposure to COVID-19; Y83.2 Surgical operation with anastomosis, bypass or graft as the cause of abnormal reaction of the patient, or of later complication, without mention of misadventure at the time of the procedure; D64.9 Anemia, unspecified; E11.51 Type 2 diabetes mellitus with diabetic peripheral angiopathy without gangrene; E78.5 Hyperlipidemia, unspecified; E87.6 Hypokalemia; I10 Essential (primary) hypertension; Z53.29 Procedure and treatment not carried out because of patient's decision for other reasons; E66.09 Other obesity due to excess calories; I25.10 Atherosclerotic heart disease of native coronary artery without angina pectoris; F32.A Depression, unspecified; Z80.49 Family history of malignant neoplasm of other genital organs; Z82.0 Family history of epilepsy and other diseases of the nervous system; Z82.49 Family history of ischemic heart disease and other diseases of the circulatory system; Z83.511 Family history of glaucoma; Z87.891 Personal history of nicotine dependence; Z90.710 Acquired absence of both cervix and uterus; Z68.30 Body mass index [BMI] 30.0-30.9, adult
CPT/HCPCS: 36415; 71045; 75989; 76942; 80048; 80053; 80061; 81003; 82948; 83605; 83735; 83880; 84100; 84145; 85025; 85610; 85730; 86850; 86900; 86901; 87040; 87070; 87071; 87076; 87077; 87186; 87205; 87635; 93005; C1729; G0378; J0692; J3370; J3490

== ENCOUNTER 2023-03-15 16:06 | Observation (INO) | payer OTHER ==
[~2023-03-15] VITALS: Ht 160 cm; Wt 75.5 kg
[2023-03-15] MEDS ORDERED: ONDANSETRON 4MG INJ IVP PRN (17:30)
[2023-03-15] MEDS ORDERED: MORPHINE 2 MG SYG IV PRN (17:30)
[2023-03-15] MEDS ORDERED: TRAZODONE HCL 100 MG TABLET PO PRN (17:30)
[2023-03-15 20:00] VITALS: BP 136/73
[2023-03-15] MEDS: PANTOPRAZOLE 40 MG TAB DR PO SCH (20:54)
[2023-03-15] MEDS: ZOSYN 3.375GM+NS 50ML 50 ML IVPB SCH (20:54)
[2023-03-15] MEDS: CARVEDILOL 6.25 MG TABLET PO SCH (20:55)
[2023-03-15] MEDS: SUCRALFATE 1 GM TABLET PO SCH (20:55)
[2023-03-15] MEDS: CILOSTAZOL 100 MG TAB PO SCH (20:55)
[2023-03-15 22:05] LABS: HEMATOCRIT 31.9 % (36-48); MEAN CORPUSCULAR HEMOGLOBIN 27.2 pg (27.0-33.0); MEAN CORPUSCULAR HGB CONC 31.3 g/dL (32.0-36.0); MEAN CORPUSCULAR VOLUME 86.7 fL (79-99); RED BLOOD CELL COUNT(AUTO) 3.68 MIL/uL (4.00-5.50); RED CELL DISTRIBUTION WIDTH 13.7 % (11.0-15.5); WHITE BLOOD COUNT (AUTO) 6.4 K/uL (4.8-10.8)
[2023-03-15 22:19] LABS: ALBUMIN 3.4 g/dL (3.5-5.0); CREATININE 1.3 mg/dL (0.5-1.5); MAGNESIUM 1.7 mg/dL (1.80-2.40); POTASSIUM 3.2 mmol/L (3.5-5.1); TOTAL PROTEIN, SERUM 6.3 g/dL (6.0-8.3)
[2023-03-16] VITALS: BP 96/65
[2023-03-16 04:00] VITALS: BP 127/84
[2023-03-16] MEDS: ZOSYN 3.375GM+NS 50ML 50 ML IVPB SCH ×3 (05:06→21:00)
[2023-03-16 07:25] VITALS: BP 144/69
[2023-03-16] MEDS ORDERED: LISINOPRIL 40 MG TABLET PO SCH (09:00)
[2023-03-16] MEDS ORDERED: DULOXETINE HCL 30 MG CAP PO SCH (09:00)
[2023-03-16] MEDS ORDERED: ATORVASTATIN 10 MG TABLET PO SCH (09:00)
[2023-03-16] MEDS ORDERED: POLYETHYLENE GLYCOL 3350 17 GM POWD.PACK PO SCH (09:00)
[2023-03-16] MEDS ORDERED: CLOPIDOGREL 75MG TAB PO SCH (09:00)
[2023-03-16] MEDS: KCL 20 MEQ ERTAB PO SCH ×3 (09:46→16:12)
[2023-03-16] MEDS: PANTOPRAZOLE 40 MG TAB DR PO SCH ×2 (09:46→21:00)
[2023-03-16] MEDS: CILOSTAZOL 100 MG TAB PO SCH ×2 (09:47→21:00)
[2023-03-16] MEDS: CARVEDILOL 6.25 MG TABLET PO SCH ×2 (09:47→21:00)
[2023-03-16] MEDS ORDERED: KCL 20 MEQ ERTAB PO PRN (10:00)
[2023-03-16] MEDS ORDERED: POTASSIUM CHLORIDE 10% ELIXIR 20 MEQ/15 ML UDCUP PO PRN (10:00)
[2023-03-16] MEDS ORDERED: POTASSIUM CHLORIDE 20MEQ/100ML 100 ML IV PRN (10:00)
[2023-03-16] MEDS ORDERED: MAGNESIUM 2GM PREMIX 50ML 50 ML IV PRN (10:00)
[2023-03-16 11:30] VITALS: BP 162/82
[2023-03-16] MEDS ORDERED: HONEY 1 APPL/ML TUBE TP SCH (15:00)
[2023-03-16 15:30] VITALS: BP 159/74
[2023-03-16 16:29] LABS: HEMATOCRIT 33.4 % (36-48); MEAN CORPUSCULAR HEMOGLOBIN 27.6 pg (27.0-33.0); MEAN CORPUSCULAR HGB CONC 31.4 g/dL (32.0-36.0); MEAN CORPUSCULAR VOLUME 87.7 fL (79-99); RED BLOOD CELL COUNT(AUTO) 3.81 MIL/uL (4.00-5.50); RED CELL DISTRIBUTION WIDTH 13.7 % (11.0-15.5); WHITE BLOOD COUNT (AUTO) 7.3 K/uL (4.8-10.8)
[2023-03-16 16:43] LABS: ALBUMIN 3.6 g/dL (3.5-5.0); CREATININE 1.1 mg/dL (0.5-1.5); MAGNESIUM 2.5 mg/dL (1.80-2.40); POTASSIUM 4.5 mmol/L (3.5-5.1); TOTAL PROTEIN, SERUM 6.7 g/dL (6.0-8.3)
[2023-03-16 20:00] VITALS: BP 148/60
[2023-03-16] MEDS: SUCRALFATE 1 GM TABLET PO SCH (21:00)
[2023-03-16] MEDS ORDERED: FUROSEMIDE 40MG VIAL IV ONE (22:00)
[2023-03-17] VITALS: BP 128/40
[2023-03-17 04:00] VITALS: BP 122/50
[2023-03-17] MEDS: ZOSYN 3.375GM+NS 50ML 50 ML IVPB SCH (05:02)
[2023-03-17 07:30] VITALS: BP 143/68
== END 2023-03-17 11:15 | disposition home or self-care (01) ==
LOC: EDH 16:06 → DIRECT 16:07 → INTOOBSV 16:07 → 4AH 17:03
PROVIDERS: ADMIT Internal Medicine; ATTEND Internal Medicine
DX: L03.115 Cellulitis of right lower limb (principal); L76.34 Postprocedural seroma of skin and subcutaneous tissue following other procedure; T81.89XA Other complications of procedures, not elsewhere classified, initial encounter; I73.9 Peripheral vascular disease, unspecified; E78.5 Hyperlipidemia, unspecified; E66.9 Obesity, unspecified; I25.10 Atherosclerotic heart disease of native coronary artery without angina pectoris; Z90.710 Acquired absence of both cervix and uterus; Z87.891 Personal history of nicotine dependence; Z91.199 Patient's noncompliance with other medical treatment and regimen due to unspecified reason; Z79.899 Other long term (current) drug therapy
CPT/HCPCS: 96365; 96366 ×3; 83735 ×2; 80053 ×2; 85027 ×2; 36415 ×2; 93970; 96375; 96367; 73700; G0378 ×38; J2543 ×5; J3475; J1940

== ENCOUNTER → 2023-03-15 | Outpatient (CLI) | payer OTHER ==
[~2023-03-15] MED LIST changes: -FERR324T PO; -FURO20TA6 PO; +POLY17PO4 PO; +SUCR1TAB2 PO
[2023-03-15 12:12] LABS: BASOPHILS % (AUTO) 0.6 % (0.0-5.0); EOSINOPHILS % (AUTO) 6.6 % (0.0-8.0); HEMATOCRIT 32.8 % (36-48); LYMPHOCYTES % (AUTO) 12.5 % (21.0-51.0); MEAN CORPUSCULAR HEMOGLOBIN 26.9 pg (27.0-33.0); MEAN CORPUSCULAR HGB CONC 31.4 g/dL (32.0-36.0); MEAN CORPUSCULAR VOLUME 85.6 fL (79-99); MONOCYTES % (AUTO) 8.5 % (3.0-13.0); NEUTROPHILS % (AUTO) 71.6 % (40.0-77.0); PLATELET COUNT (AUTO) 310 K/uL (130-400); RED BLOOD CELL COUNT(AUTO) 3.83 MIL/uL (4.00-5.50); RED CELL DISTRIBUTION WIDTH 13.8 % (11.0-15.5)
[2023-03-15 12:19] LABS: HEMOGLOBIN A1C 5.5 % (4.0-6.0)
[2023-03-15 12:35] LABS: % IRON SATURATION 11.4 % (22-44)
[2023-03-15 12:51] LABS: ALANINE AMINOTRANSFERASE 19 U/L (12-78); ALBUMIN 3.8 g/dL (3.5-5.0); ASPARTATE AMINOTRANSFERASE 25 U/L (10-37); CARBON DIOXIDE 25 mmol/L (21-32); CHLORIDE 96 mmol/L (101-111); CHOLESTEROL 169 mg/dL (<200); GLOMERULAR FILTR. RATE CALC 59 mL/min (>90); GLUCOSE,RANDOM 132 mg/dL (70-105); HDL CHOLESTEROL 76 mg/dL (35-85); LDL DIRECT 67 mg/dL (0-99); POTASSIUM 3.4 mmol/L (3.5-5.1); SODIUM SERUM 133 mmol/L (136-145); TOTAL PROTEIN, SERUM 6.9 g/dL (6.0-8.3); TRIGLYCERIDES 85 mg/dL (30-200); UREA NITROGEN, BLOOD 4 mg/dL (7-18)
== END | disposition home or self-care (01) ==
LOC: LAB 08:30
PROVIDERS: ATTEND Student in an Organized Health Care Education/Training Program
DX: I73.9 Peripheral vascular disease, unspecified (principal); E78.2 Mixed hyperlipidemia; I10 Essential (primary) hypertension; K92.2 Gastrointestinal hemorrhage, unspecified; E87.1 Hypo-osmolality and hyponatremia; Z79.899 Other long term (current) drug therapy
CPT/HCPCS: 36415; 80053; 80061; 82746; 83036; 83540; 83550; 85025

== ENCOUNTER → 2023-04-02 | Outpatient (CLI) | payer OTHER ==
[~2023-04-02] MED LIST changes: -FOLI1TAB85 PO; +POTA-364 PO; -POTA-79 PO
[2023-04-02 16:26] LABS: BASOPHILS % (AUTO) 0.4 % (0.0-5.0); EOSINOPHILS % (AUTO) 3.8 % (0.0-8.0); HEMATOCRIT 32.7 % (36-48); LYMPHOCYTES % (AUTO) 16.3 % (21.0-51.0); MEAN CORPUSCULAR HEMOGLOBIN 26.8 pg (27.0-33.0); MEAN CORPUSCULAR HGB CONC 32.1 g/dL (32.0-36.0); MEAN CORPUSCULAR VOLUME 83.4 fL (79-99); MONOCYTES % (AUTO) 7.7 % (3.0-13.0); NEUTROPHILS % (AUTO) 71.4 % (40.0-77.0); PLATELET COUNT (AUTO) 303 K/uL (130-400); RED BLOOD CELL COUNT(AUTO) 3.92 MIL/uL (4.00-5.50); WHITE BLOOD COUNT (AUTO) 7.4 K/uL (4.8-10.8)
[2023-04-02 16:40] LABS: HEMOGLOBIN A1C 5.7 % (4.0-6.0)
[2023-04-02 16:56] LABS: ALBUMIN 3.7 g/dL (3.5-5.0); CREATININE 0.8 mg/dL (0.5-1.5); POTASSIUM 3.3 mmol/L (3.5-5.1); TOTAL PROTEIN, SERUM 6.9 g/dL (6.0-8.3)
== END | disposition home or self-care (01) ==
LOC: LAB 11:39
PROVIDERS: ATTEND Student in an Organized Health Care Education/Training Program
DX: I10 Essential (primary) hypertension (principal); I73.9 Peripheral vascular disease, unspecified; E78.2 Mixed hyperlipidemia; E87.6 Hypokalemia; Z79.899 Other long term (current) drug therapy
CPT/HCPCS: 36415; 80053; 80061; 83036; 85025

== ENCOUNTER → 2023-10-23 | Outpatient (CLI) | payer OTHER | END | disposition home or self-care (01) | LOC: SHCH 09:01 | PROVIDERS: ATTEND Student in an Organized Health Care Education/Training Program | DX: I35.0 Nonrheumatic aortic (valve) stenosis (principal) | CPT/HCPCS: 93306 ==

== ENCOUNTER → 2024-12-24 | Outpatient (CLI) | payer OTHER ==
[~2024-12-24] MED LIST changes: +CARV3.1262 PO; +LISI20TA24 PO
[2024-12-24 12:53] LABS: ALBUMIN 3.7 g/dL (3.5-5.0); MAGNESIUM 1.6 mg/dL (1.80-2.40); POTASSIUM 3.6 mmol/L (3.5-5.1); THYROID STIMULATING HORMONE 1.73 uIU/mL (0.36-3.74); TOTAL PROTEIN, SERUM 6.9 g/dL (6.0-8.3)
[2024-12-24 13:08] LABS: BASOPHILS # (AUTO) 0.08 K/uL (0.00-0.20); BASOPHILS % (AUTO) 0.8 % (0.0-5.0); EOSINOPHILS # (AUTO) 0.12 K/uL (0.00-0.70); EOSINOPHILS % (AUTO) 1.3 % (0.0-8.0); HEMATOCRIT 26.9 % (36-48); IMMATURE GRANULOCYTE ABSOLUTE 0.04 K/uL (0-1); LYMPHOCYTES # (AUTO) 0.6 K/uL (1.0-4.8); LYMPHOCYTES % (AUTO) 6.1 % (21.0-51.0); MEAN CORPUSCULAR HEMOGLOBIN 14.9 pg (27.0-33.0); MEAN CORPUSCULAR HGB CONC 24.2 g/dL (32.0-36.0); MEAN CORPUSCULAR VOLUME 61.6 fL (79-99); MONOCYTES # (AUTO) 0.7 K/uL (0.1-1.0); MONOCYTES % (AUTO) 7.1 % (3.0-13.0); NEUTROPHILS # (AUTO) 8.1 K/uL (1.8-7.7); NEUTROPHILS % (AUTO) 84.3 % (40.0-77.0); PLATELET COUNT (AUTO) 458 K/uL (130-400); RED BLOOD CELL COUNT(AUTO) 4.37 MIL/uL (4.00-5.50); WHITE BLOOD COUNT (AUTO) 9.6 K/uL (4.8-10.8)
== END | disposition home or self-care (01) ==
LOC: LAB 11:23
PROVIDERS: ATTEND Student in an Organized Health Care Education/Training Program
DX: I35.0 Nonrheumatic aortic (valve) stenosis (principal); E78.2 Mixed hyperlipidemia; E87.6 Hypokalemia; I73.9 Peripheral vascular disease, unspecified; I10 Essential (primary) hypertension; L76.34 Postprocedural seroma of skin and subcutaneous tissue following other procedure; R42 Dizziness and giddiness; Z79.899 Other long term (current) drug therapy
CPT/HCPCS: 36415; 80053; 80061; 82306; 83735; 84443; 85025

== ENCOUNTER 2024-12-26 12:04 | Emergency (ER) | payer OTHER ==
[~2024-12-26] VITALS: Ht 157.5 cm; Wt 61.2 kg
[~2024-12-26 12:04] MED LIST changes: -CARV3.1262 PO; -LISI20TA24 PO
[2024-12-26 12:18] VITALS: BP 105/63; PULSE 119; RESP 18; TEMP 99.5
--- NOTE | 2024-12-26 12:50 | ERN ---
ED Note History of Present Illness Stated Complaint: SENT BY Chief Complaint: Abnormal Labs Dictation: 74-year-old female presented to the ER after being found to have a low hemoglobin at her routine labs at [facility]. She was told that her hemoglobin was 6.5. She stated she is feeling fine. Allergies: Coded Allergies: No Known Allergies (Verified Allergy, Unknown, 03/27/20) Home Meds Reported Medications Sucralfate (Sucralfate) 1 Gm Tablet, 1 GM PO HS, TAB 03/05/23 Polyethylene Glycol 3350 (Miralax) 17 Gm Powd.pack, 17 GM PO DAILY 03/02/23 Clopidogrel Bisulfate (Clopidogrel) 75 Mg Tablet, 75 MG PO DAILY, TAB 01/26/23 Lisinopril (Lisinopril) 40 Mg Tablet, 40 MG PO DAILY, TAB 01/26/23 Carvedilol (Carvedilol) 6.25 Mg Tablet, 6.25 MG PO BID, TAB 01/26/23 Cilostazol (Cilostazol) 100 Mg Tablet, 100 MG PO BID, TAB 01/26/23 Pantoprazole Sodium (Pantoprazole Sodium) 40 Mg Tablet.dr, 40 MG PO BID, TAB 01/26/23 Trazodone HCl (Trazodone HCl) 100 Mg Tablet, 100 MG PO HS PRN for INSOMNIA, TAB 01/26/23 Potassium Chloride (Potassium Chloride) 20 Meq Tablet.er, 20 MEQ PO AM, TAB 01/02/23 Atorvastatin Calcium (LIPITOR) 20 Mg Tab, 20 MG PO DAILY, TAB 11/08/22 Duloxetine HCl (Cymbalta) 60 Mg Capsule.dr, 60 MG PO DAILY, CAP 11/08/22 Past Medical History Past Medical History: Anemia, Hypertension, Other Additional Past Medical Hx: PAD Surgical History: Unknown Surgical History Other: Right femoropopliteal, hernia repair Family History: HTN Social History: Negative, Lives with family Review of System Dictation NEGATIVE EXCEPT PER HPI Constitutional: Negative for fever,chills, and weight loss Eyes: Negative for injury, pain,redness, and discharge ENT: Negative for injury,pain or swelling Cardiovascular: denies chest pain, palpitations, and edema Respiratory: Negative for shortness of breath, cough, and wheezing, Abdomen/GI: Negative for abdominal pain, nausea, vomiting, diarrhea, and constipation Back: Negative for injury and pain : Negative for injury, bleeding and discharge MS/Extremity: Negative for injury and deformity Skin: Negative for rash, and discoloration Neuro: Negative for headache, weakness, numbness, tingling, and seizure Psych: Negative for suicide ideation, homicidal ideation, and hallucinations Initial Vital Sign VS Vital Signs Date Time Temp Pulse Resp B/P (MAP) Pulse Ox O2 Delivery O2 Flow Rate FiO2 12/26/24 12:18 99.5 119 18 105/63 99 Room Air Physical Exam Dictation General: awake, alert, NAD Head/Face: Normocephalic, atraumatic Eyes: PERRL, EOMI, vision at baseline ENT: oral cavity clear, TMs clear, no signs of infection Neck: Trachea midline, supple, no nuchal rigidity Cardiovascular: RRR, normal S1/S2, No MRGs, no JVD Respiratory: CTAB, no respiratory distress, No rales or wheezes Abdomen: Soft , no tender Skin: Warm, dry, normal turgor, no rash MS/Extremity: Pulses equal, no cyanosis, neurovascular intact, FROM Neuro: COAx4, GCS 15, strength 5/5, CN 2-12 intact, normal cerebellar exam, normal gait, Psych: Normal behavior, mood, and affect normal Results (Laboratory/Radiology) Laboratory/Radiology Laboratory Tests Test 12/26/24 13:03 White Blood Count 7.4 K/uL (4.8-10.8) Red Blood Count 4.24 MIL/uL (4.00-5.50) Hemoglobin 6.1 g/dL (12.0-16.0) *L Hematocrit 25.8 % (36-48) L Mean Corpuscular Volume 60.8 fL (79-99) L Mean Corpuscular Hemoglobin 14.4 pg (27.0-33.0) L Mean Corpuscular Hemoglobin Concent 23.6 g/dL (32.0-36.0) L Red Cell Distribution Width 22.1 % (11.0-15.5) H Platelet Count 449 K/uL (130-400) H Mean Platelet Volume fL (7.5-10.5) Immature Granulocyte % (Auto) 0.4 % (0-1) Neutrophils (%) (Auto) 82.1 % (40.0-77.0) H Lymphocytes (%) (Auto) 8.1 % (21.0-51.0) L Monocytes (%) (Auto) 7.2 % (3.0-13.0) Eosinophils (%) (Auto) 1.1 % (0.0-8.0) Basophils (%) (Auto) 1.1 % (0.0-5.0) Neutrophils # (Auto) 6.1 K/uL (1.8-7.7) Lymphocytes # (Auto) 0.6 K/uL (1.0-4.8) L Monocytes # (Auto) 0.5 K/uL (0.1-1.0) Eosinophils # (Auto) 0.08 K/uL (0.00-0.70) Basophils # (Auto) 0.08 K/uL (0.00-0.20) Absolute Immature Granulocyte (auto 0.03 K/uL (0-1) Nucleated Red Blood Cells 0.0 % (0.0-0.19) Sodium Level 135 mmol/L (136-145) L Potassium Level 2.8 mmol/L (3.5-5.1) *L Chloride Level 98 mmol/L (101-111) L Carbon Dioxide Level 23 mmol/L (21-32) Blood Urea Nitrogen 6 mg/dL (7-18) L Creatinine 1.1 mg/dL (0.5-1.0) H Glomerular Filtration Rate Calc 52 mL/min (>90) Random Glucose 150 mg/dL (70-105) H Total Calcium 9.4 mg/dL (8.5-10.1) ED Course ED Course Orders Procedure Category Date Status Time Cbc With Differential LAB 12/26/24 Complete 12:46 Basic Metabolic Panel LAB 12/26/24 Complete 12:46 Vital Signs Date Time Temp Pulse Resp B/P (MAP) Pulse Ox O2 Delivery O2 Flow Rate FiO2 12/26/24 12:18 99.5 119 18 105/63 99 Room Air Medical Decision Making MDM 74-year-old female with past medical history of PID, anemia. Presented to the ER after been found to have low hemoglobin level at routine outpatient labs workup Repeat CBC, checking BMP DX & DISP Disposition: AMA Departure Condition: Stable Referrals: RUFINO CARUSO MD (PCP) Patient eloped prior admission. DANY SEGOVIA MD Dec 26, 2024 12:50
[2024-12-26 13:26] LABS: BASOPHILS # (AUTO) 0.08 K/uL (0.00-0.20); BASOPHILS % (AUTO) 1.1 % (0.0-5.0); EOSINOPHILS # (AUTO) 0.08 K/uL (0.00-0.70); EOSINOPHILS % (AUTO) 1.1 % (0.0-8.0); HEMATOCRIT 25.8 % (36-48); IMMATURE GRANULOCYTE ABSOLUTE 0.03 K/uL (0-1); LYMPHOCYTES # (AUTO) 0.6 K/uL (1.0-4.8); LYMPHOCYTES % (AUTO) 8.1 % (21.0-51.0); MEAN CORPUSCULAR HEMOGLOBIN 14.4 pg (27.0-33.0); MEAN CORPUSCULAR HGB CONC 23.6 g/dL (32.0-36.0); MEAN CORPUSCULAR VOLUME 60.8 fL (79-99); MONOCYTES # (AUTO) 0.5 K/uL (0.1-1.0); MONOCYTES % (AUTO) 7.2 % (3.0-13.0); NEUTROPHILS # (AUTO) 6.1 K/uL (1.8-7.7); NEUTROPHILS % (AUTO) 82.1 % (40.0-77.0); PLATELET COUNT (AUTO) 449 K/uL (130-400); RED BLOOD CELL COUNT(AUTO) 4.24 MIL/uL (4.00-5.50); RED CELL DISTRIBUTION WIDTH 22.1 % (11.0-15.5); WHITE BLOOD COUNT (AUTO) 7.4 K/uL (4.8-10.8)
--- NOTE | 2024-12-26 13:33 | NUR ---
HEM-6.1 ERMD MADE AWARE
[2024-12-26 13:38] LABS: CREATININE 1.1 mg/dL (0.5-1.0)
[2024-12-26 13:54] LABS: POTASSIUM 2.8 mmol/L (3.5-5.1)
--- NOTE | 2024-12-26 15:45 | NUR ---
ADMITING HEALTH AND WELLNESS SALES CONSULTANT FOR HOSPITALIST RADHA LOOKING FOR PATIENT; ADMITTING HEALTH AND WELLNESS SALES CONSULTANT RADHA ACCOMPANIED BY THIS ED RN TO LOOK FOR PATIENT; CALL WAS MADE FOR PATIENT BY BOTH RADHA AND THIS RN TO ED LOBBY. NO ANSWER AT THIS TIME. ED CHARGE MADE AWARE.
--- NOTE | 2024-12-26 16:11 | NUR ---
PT CALLED MULTIPLE TIMES BY DR. ANNETTE GARCIA, MATHIEU RN, XIOMY, AND MYSELF. NO ANSWER, PROCEEDED TO CALL PATIENT IN CELL PHONE, SPOKE TO SISTER STATES " SHE LEFT"
[2024-12-26] MEDS ORDERED: CARV3.1262 PO (21:11)
[2024-12-26] MEDS ORDERED: LISI20TA24 PO (21:11)
== END 2024-12-26 14:04 | disposition left against medical advice (07) ==
LOC: EDH 12:04
DX: D64.9 Anemia, unspecified (principal); I10 Essential (primary) hypertension; Z79.02 Long term (current) use of antithrombotics/antiplatelets; Z79.899 Other long term (current) drug therapy; Z98.890 Other specified postprocedural states
CPT/HCPCS: 36415; 80048; 85025; 99283

== ENCOUNTER 2024-12-26 16:15 | Observation (INO) | payer OTHER ==
[~2024-12-26] VITALS: Ht 157.5 cm; Wt 62.5 kg
--- NOTE | 2024-12-26 16:22 | ERN ---
ED Note History of Present Illness Stated Complaint: ABNORMAL LABS Dictation: 74-year-old female with past medical history of PAD, anemia. Presented to the ER after been found to have low hemoglobin level at routine outpatient labs workup at [facility]iology office. Patient had a hemoglobin level checked today, hemoglobin level was 6.1. Plan for admission was discussed with the hospitalist for further blood transfusion. But patient left AMA/eloped. Now she came back to the emergency department for further evaluation. Allergies: Coded Allergies: No Known Allergies (Verified Allergy, Unknown, 03/27/20) Home Meds Reported Medications Sucralfate (Sucralfate) 1 Gm Tablet, 1 GM PO HS, TAB 03/05/23 Polyethylene Glycol 3350 (Miralax) 17 Gm Powd.pack, 17 GM PO DAILY 03/02/23 Clopidogrel Bisulfate (Clopidogrel) 75 Mg Tablet, 75 MG PO DAILY, TAB 01/26/23 Lisinopril (Lisinopril) 40 Mg Tablet, 40 MG PO DAILY, TAB 01/26/23 Carvedilol (Carvedilol) 6.25 Mg Tablet, 6.25 MG PO BID, TAB 01/26/23 Cilostazol (Cilostazol) 100 Mg Tablet, 100 MG PO BID, TAB 01/26/23 Pantoprazole Sodium (Pantoprazole Sodium) 40 Mg Tablet.dr, 40 MG PO BID, TAB 01/26/23 Trazodone HCl (Trazodone HCl) 100 Mg Tablet, 100 MG PO HS PRN for INSOMNIA, TAB 01/26/23 Potassium Chloride (Potassium Chloride) 20 Meq Tablet.er, 20 MEQ PO AM, TAB 01/02/23 Atorvastatin Calcium (LIPITOR) 20 Mg Tab, 20 MG PO DAILY, TAB 11/08/22 Duloxetine HCl (Cymbalta) 60 Mg Capsule.dr, 60 MG PO DAILY, CAP 11/08/22 Past Medical History Past Medical History: Anemia, Hypertension, Other Additional Past Medical Hx: PAD Surgical History: Unknown Surgical History Other: Right femoropopliteal, hernia repair Family History: HTN Social History: Negative, Lives with family Review of System Dictation NEGATIVE EXCEPT PER HPI Constitutional: Negative for fever,chills, and weight loss Eyes: Negative for injury, pain,redness, and discharge ENT: Negative for injury,pain or swelling Cardiovascular: denies chest pain, palpitations, and edema Respiratory: Negative for shortness of breath, cough, and wheezing, Abdomen/GI: Negative for abdominal pain, nausea, vomiting, diarrhea, and constipation Back: Negative for injury and pain : Negative for injury, bleeding and discharge MS/Extremity: Negative for injury and deformity Skin: Negative for rash, and discoloration Neuro: Negative for headache, weakness, numbness, tingling, and seizure Psych: Negative for suicide ideation, homicidal ideation, and hallucinations Initial Vital Sign VS Vital Signs Date Time Temp Pulse Resp B/P (MAP) Pulse Ox O2 Delivery O2 Flow Rate FiO2 12/26/24 16:28 98.6 96 16 130/53 100 Room Air Physical Exam Dictation General: awake, alert, NAD Head/Face: Normocephalic, atraumatic Eyes: PERRL, EOMI, vision at baseline ENT: oral cavity clear, TMs clear, no signs of infection Neck: Trachea midline, supple, no nuchal rigidity Cardiovascular: RRR, normal S1/S2, No MRGs, no JVD Respiratory: CTAB, no respiratory distress, No rales or wheezes Abdomen: Soft , no tender Skin: Warm, dry, normal turgor, no rash MS/Extremity: Pulses equal, no cyanosis, neurovascular intact, FROM Neuro: COAx4, GCS 15, strength 5/5, CN 2-12 intact, normal cerebellar exam, normal gait, Psych: Normal behavior, mood, and affect normal ED Course ED Course Orders Procedure Category Date Status Time Potassium Chloride PHA 12/26/24 In Process 10meq Sr (K-Dur 10meq 17:30 Admit Orders ADM 12/26/24 Verified 17:08 Rbc-No Active Bleeding BBK 12/26/24 Verified 17:08 Type And Screen BBK 12/26/24 Verified 17:08 Acetaminophen 325 Tab PHA 12/26/24 Verified (Tylenol 325mg Tab 17:30 Ondansetron 4mg Inj PHA 12/26/24 Verified (Zofran 4mg Inj) 17:30 Heart Healthy Diet DIET 12/27/24 Verified Breakfast Occult Blood Stool LAB 12/26/24 Verified Single Only 17:08 Gastroenterology CONPHYSVC 12/26/24 Verified Consult 17:08 Hemoglobin And LAB 12/26/24 Verified Hematocrit 17:08 Cbc With Differential LAB 12/26/24 Verified 17:08 Comprehensive LAB 12/26/24 Verified Metabolic Panel 17:08 Magnesium LAB 12/26/24 Verified 17:08 Initiate Po DIANNA 12/26/24 Verified Hypokalemia Protoc 17:08 Potassium Chl 20 PHA 12/26/24 Verified Meq/100ml Iv 17:30 Potassium Chl 10% PHA 12/26/24 Verified Elixir 20meq (Kcl 10% 17:30 Potassium Chloride PHA 12/26/24 Verified 20meq Er (K-Dur/Klor- 17:30 Notify Physician If CPOE 12/26/24 Verified There Is 17:08 Notify Md On The Next CPOE 12/26/24 Verified 17:08 Notify Md On The CPOE 12/26/24 Verified Next(Cont.) 17:08 Magnesium 2gm Iv PHA 12/26/24 Verified 17:30 Current Medications Medications (Trade) Dose Ordered Sig/Deanna Route PRN Reason Start Time Stop Time Status Last Admin Dose Admin Potassium Chloride (K-Dur 10meq Sr Tab) 40 meq ONCE ONCE PO 12/26/24 17:30 12/26/24 17:31 Vital Signs Date Time Temp Pulse Resp B/P (MAP) Pulse Ox O2 Delivery O2 Flow Rate FiO2 12/26/24 16:28 98.6 96 16 130/53 100 Room Air Medical Decision Making MDM 74-year-old female with past medical history of PAD, anemia. Presented to the ER after been found to have low hemoglobin level at routine outpatient labs workup at Cardiology office. Patient had a hemoglobin level checked today, hemoglobin level was 6.1. Plan for admission was discussed with the hospitalist for further blood transfusion. But patient left AMA/eloped. Now she came back to the emergency department for further evaluation. 1. Anemia 2. Hypokalemia Patient hemoglobin 6.1, Potassium level 2.8 Patient denies seen blood in the stool. Denies hematemesis. Patient will be evaluated by benchmark team for further observation/transfusion of PRBC. DX & DISP Disposition: Inpatient Decision to Admit Date: Dec 26, 2024 Decision to Admit Time: 17:04 Departure Impression: Primary Impression: Anemia Additional Impression: Hypokalemia Condition: Stable Referrals: RUFINO CARUSO MD (PCP) DANY SEGOVIA MD Dec 26, 2024 16:22
--- NOTE | 2024-12-26 16:50 | NUR ---
PT IS NOW PLACED IN BED 20.
--- NOTE | 2024-12-26 17:19 | HP ---
[facility] HISTORY AND PHYSICAL Date of Service: Dec 26, 2024 Time of Service: 17:07 HISTORY OF PRESENT ILLNESS: [ ] This is a 74-year-old female with a past medical history of P AD, hypertension, dyslipidemia was sent by her hiv prevention specialist's given to abnormal labs. Patient's hemoglobin 6.1 Hct: 25.4. The patient reports no active bleeding,Associated symptoms: weak light headed. Denies chest pain, shortness of breath. she reports seeing [place] [facility]. She on Plavix last dose was yesterday. REVIEW OF SYSTEMS CONSTITUTIONAL: Denies fevers, chills, or night sweats. No unintentional weight loss reported. NEUROLOGICAL: Denies headache, amaurosis fugax, motor weakness, sensory deficit, vertigo/spinning sensation, gait abnormalities, or tremors. ENT: No hearing loss, otalgia, otorrhea, rhinitis, rhinorrhea, hoarseness, or sore throat. CARDIOVASCULAR: Denies any exertional angina, dyspnea on exertion, orthopnea, paroxysmal nocturnal dyspnea, palpitations, life-threatening arrhythmias, claudication. PULMONARY: Denies any shortness of breath, cough, phlegm/sputum, hemoptysis, pleuritic chest pain. SLEEP: Denies morning headaches, daytime somnolence or napping. Denies difficulty falling asleep, staying asleep, waking from sleep. Denies knowledge of snoring. GASTROINTESTINAL: Denies any type of dysphagia to either liquids or solids. Denies nausea, vomiting, pyrosis, early satiety, abdominal pain, diarrhea, constipation, or changes in stool consistency or caliber. Denies coffee-ground emesis, hematemesis, hematochezia, or melanotic stools. GENITOURINARY: Denies frequency, urgency, nocturia, hematuria or incontinence (Storage/Irritative symptoms.) Low urinary stream, straining to void, urinary intermittency or hesitancy, splitting of the voiding stream, terminal dribbling. ENDOCRINOLOGIC: Denies polyuria, polydipsia, polyphagia or heat/cold intolerances. HEMATOLOGIC: Denies thrombophilia/previous clots, or coagulopathy/bleeding disorders. ONCOLOGIC: Denies personal history of malignancy. DERMATOLOGIC: Denies rashes or pruritus. PSYCHIATRIC: Denies any suicidal or homicidal ideation. Denies hallucinations. PAST MEDICAL HISTORY: [ ] Refer to HPI PAST SURGICAL HISTORY: [ ]Right femoral to below the knee popliteal artery bypass 01/29/2023 Left ankle surgery Cholecystectomy X2 mesh repairs Hysterectomy PAST SOCIAL HISTORY: [ ] Lives alone, quit smoking many years ago. FAMILY HISTORY: [ ] Hypertension dyslipidemia lung disease Coded Allergies: No Known Allergies (Verified Allergy, Unknown, 03/27/20) PHYSICAL EXAM GENERAL APPEARANCE: The patient is awake, alert, and oriented, in no acute cardiopulmonary distress. NEUROLOGICAL: Cranial nerves II-XII grossly intact. Motor is 5/5 in bilateral upper and lower extremities proximal to distal. No sensory deficits. HEENT: Face is symmetric. Pupils are equal and reactive. Extraocular movements are intact. NECK: Supple. No JVD. No thyromegaly. No submental, submandibular, pre- /postauricular, occipital or supraclavicular lymphadenopathy. CHEST: Normal chest expansion. No Telemetry. LUNGS: Absence of any rales, rhonchi or any wheezing. CARDIOVASCULAR: Regular. S1 and S2 normal. No appreciable rubs, murmurs or gallops. ABDOMEN: Soft, nontender, and nondistended. There is no rebound, voluntary guarding, or rigidity. : Deferred. No Lerner. EXTREMITIES: Non-edematous and not cyanotic. No clubbing. Good capillary refill. SKIN: No skin breakdown. Vital Sign (Last 24 Hours) 12/26/24 16:28 Temp 98.6 Pulse 96 Resp 16 B/P (MAP) 130/53 Pulse Ox 100 O2 Delivery Room Air LABS: DIAGNOSTICS / RADIOLOGY: [ ] ASSESSMENT: Profound anemia requiring blood transfusion POA electrolytes: Hyponatremia, Hypomagnesemia Hypokalemia POA Hx: severe gastritis POA Chronic problem hypertension hyperlipidemia PAD PLAN: Admit: Medical-surgical condition: Guarded Status: Full code IVF: [facility] Blood transfusion 2 packed RBCs Test: Occult blood x1 PPI: Protonix 40 mg IV bid Labs cbc, cmp, mag+ Replace electrolytes as needed as per protocol to keep potassium above 4.0 magnesium 2.0. Home medications On Plavix last dose yesterday. PRN: MEDICATIONS Tylenol 650 mg po every 4 hrs for fever zofran 4 mg IV every 6 hrs for n/v Hydralazine 5 mg IV every 4 hrs systolic pressure > 160 bowel regiment: lactulose 20 gm PO BID PRN constipation Pain management: none Supportive measures: DVT ppx, GI ppx all questions answered time spent: > 35 min Supervising MD: Dr. Lopez c/d This document was generated in part using voice recognition software, occasional wrong word or sound alike substitutions may have occurred due to the inherent limitations of voice recognition software. Read the chart carefully and recognize using context, where the substitutions have occurred. Although every effort was made to edit the content, gear cutter and typing errors may occur ADVANCED CARE PLANNING 1. Which of the following were discussed? Hospice Care - Yes / No Therapeutic options - Yes / No Advance Directives - Yes / No Other discussions - 2. Discussed with who? 3. Voluntary nature of this service was explained to the patient? Yes / No 4. Amount of time spent - 5. Reviewed by Physician? (if this service was performed by NPP) Yes / No ATTESTATION BY PHYSICIAN I have seen and examined the patient. I reviewed the documentation, medical decision making, and treatment plan as noted by the mid-level provider above. I agree with the findings and plan of care. Nabila Lopez MD, ELIZABETH NP Dec 26, 2024 17:19
--- NOTE | 2024-12-26 17:25 | NUR ---
HOSPITALIST ANIL MCGUIRE IS BY BEDSIDE.
[2024-12-26] MEDS ORDERED: PoTASSium chl 10% ELIXIR 20MEQ 20 MEQ/15 ML UDCUP PO PRN (17:30)
[2024-12-26] MEDS ORDERED: PoTASSium chloRIDE 20MEQ/100ML 100 ML IV PRN (17:30)
[2024-12-26] MEDS ORDERED: MAGNESIUM 2GM PREMIX 50ML 50 ML IV PRN (17:30)
[2024-12-26] MEDS ORDERED: ondanSETRON 4MG INJ IVP PRN (17:30)
[2024-12-26] MEDS ORDERED: acetaMINOPHEN 325 MG TAB PO PRN (17:30)
--- NOTE | 2024-12-26 17:42 | NUR ---
SPOKE WITH PATIENT REGARDING THE NEED FOR IV ACCESS AND LAB WORK. PATIENT IS CURRENTLY UPSET BECAUSE SHE STATES SHE WAS NEVER CALLED FROM THE LOBBY. PATIENT AGREED TO IV ACCESS AND BLOOD DRAW.
[2024-12-26] MEDS: PoTASSium chloRIDE 10MEQ SR 10 MEQ/TAB TAB.SR.24H PO ONE (17:45)
[2024-12-26 18:00] LABS: BASOPHILS # (AUTO) 0.06 K/uL (0.00-0.20); BASOPHILS % (AUTO) 0.7 % (0.0-5.0); EOSINOPHILS # (AUTO) 0.03 K/uL (0.00-0.70); EOSINOPHILS % (AUTO) 0.3 % (0.0-8.0); HEMATOCRIT 25.4 % (36-48); IMMATURE GRANULOCYTE ABSOLUTE 0.03 K/uL (0-1); LYMPHOCYTES # (AUTO) 0.8 K/uL (1.0-4.8); LYMPHOCYTES % (AUTO) 9.2 % (21.0-51.0); MEAN CORPUSCULAR HEMOGLOBIN 14.5 pg (27.0-33.0); MEAN CORPUSCULAR VOLUME 60.3 fL (79-99); MONOCYTES # (AUTO) 0.6 K/uL (0.1-1.0); MONOCYTES % (AUTO) 6.8 % (3.0-13.0); NEUTROPHILS # (AUTO) 7.4 K/uL (1.8-7.7); NEUTROPHILS % (AUTO) 82.7 % (40.0-77.0); PLATELET COUNT (AUTO) 416 K/uL (130-400); RED BLOOD CELL COUNT(AUTO) 4.21 MIL/uL (4.00-5.50); RED CELL DISTRIBUTION WIDTH 21.9 % (11.0-15.5)
[2024-12-26 18:20] LABS: ALBUMIN 3.8 g/dL (3.5-5.0); BILIRUBIN,TOTAL 0.6 mg/dL (0.2-1.0); MAGNESIUM 1.7 mg/dL (1.80-2.40); TOTAL PROTEIN, SERUM 6.7 g/dL (6.0-8.3)
[2024-12-26] MEDS: PANTOPrazole 40 MG/VIAL IVP SCH (20:35)
[2024-12-26] MEDS ORDERED: CARV3.1262 PO (21:11)
[2024-12-26] MEDS ORDERED: LISI20TA24 PO (21:11)
--- NOTE | 2024-12-26 21:15 | NUR ---
REPORT GIVEN TO BESSIE JONES
[2024-12-26 21:40] VITALS: BP 164/67; PULSE 84; RESP 20; TEMP 97.9; O2SAT 98
--- NOTE | 2024-12-26 21:40 | NUR ---
arrival patient arrived to room 411. patient alert and oriented times 4. plan of care discussed with her and she verbalized understanding. patient is ambulatory to the restroom. she does not have any shortness of breath or nausea/vomitting. she has been calmly in her bed watching videos on her phone. call light within reach, bed alarm on, 2 side rails up. will continue to monitor patient.
--- NOTE | 2024-12-26 22:00 | NUR ---
gastroenterology let dr. ambrosio know about consult pending call back.
[2024-12-26 23:49] VITALS: BP 163/65; PULSE 76; RESP 20; TEMP 97.7
[2024-12-27] MEDS: MAGNESIUM 2GM PREMIX 50ML 50 ML IV SCH (00:34)
--- NOTE | 2024-12-27 00:48 | NUR ---
dr. ambrosio spoke with dr. ambrosio. he recommends an EGD and clear liquids until breakfast. I spoke with the patient and she refuses the EGD. She says she can always follow up with the [place] [facility] specialist as outpatient.
--- NOTE | 2024-12-27 00:55 | NUR ---
GI let dr. ambrosio know that the patient is refusing an EGD. He will sign off at this time.
[2024-12-27 02:19] LABS: CREATININE 0.9 mg/dL (0.5-1.0); MAGNESIUM 2.1 mg/dL (1.80-2.40); POTASSIUM 3.2 mmol/L (3.5-5.1)
[2024-12-27 02:28] LABS: BASOPHILS # (AUTO) 0.06 K/uL (0.00-0.20); BASOPHILS % (AUTO) 0.8 % (0.0-5.0); EOSINOPHILS # (AUTO) 0.27 K/uL (0.00-0.70); EOSINOPHILS % (AUTO) 3.7 % (0.0-8.0); HEMATOCRIT 25.8 % (36-48); IMMATURE GRANULOCYTE ABSOLUTE 0.02 K/uL (0-1); LYMPHOCYTES # (AUTO) 1.5 K/uL (1.0-4.8); LYMPHOCYTES % (AUTO) 20.4 % (21.0-51.0); MEAN CORPUSCULAR HEMOGLOBIN 15.9 pg (27.0-33.0); MEAN CORPUSCULAR HGB CONC 25.6 g/dL (32.0-36.0); MEAN CORPUSCULAR VOLUME 62.2 fL (79-99); MONOCYTES # (AUTO) 0.8 K/uL (0.1-1.0); MONOCYTES % (AUTO) 11.4 % (3.0-13.0); NEUTROPHILS # (AUTO) 4.6 K/uL (1.8-7.7); NEUTROPHILS % (AUTO) 63.4 % (40.0-77.0); NUCLEATED RED BLOOD CELLS 0.3 % (0.0-0.19); PLATELET COUNT (AUTO) 366 K/uL (130-400); RED BLOOD CELL COUNT(AUTO) 4.15 MIL/uL (4.00-5.50); RED CELL DISTRIBUTION WIDTH 22.7 % (11.0-15.5); WHITE BLOOD COUNT (AUTO) 7.2 K/uL (4.8-10.8)
[2024-12-27] MEDS: PoTASSium chloRIDE 20MEQ ER 20 MEQ ERTAB PO PRN (02:47)
[2024-12-27] MEDS: hydrALAZine 20MG/ML VIAL IV PRN (03:11)
[2024-12-27 04:00] VITALS: BP 166/87; PULSE 87; RESP 18; TEMP 98.1
[2024-12-27] MEDS: LAbetaLOL 20MG SYG IV ONE (05:47)
[2024-12-27 07:00] VITALS: BP 183/68; PULSE 83; RESP 18; TEMP 98.3
[2024-12-27 08:00] VITALS: O2SAT 98
[2024-12-27 08:32] LABS: HEMATOCRIT 31.2 % (36-48)
[2024-12-27] MEDS ORDERED: cloPIDOgrel 75MG TAB PO SCH (09:00)
--- NOTE | 2024-12-27 09:06 | DS ---
Discharge Summary Hospital Course Summary: This is a 74-year-old female with a past medical history of P AD, hypertension, dyslipidemia was sent by her res counselor's given to abnormal labs. Patient's hemoglobin 6.1 Hct: 25.4. The patient reports no active bleeding,Associated symptoms: weak light headed. Denies chest pain, shortness of breath. she reports seeing [facility]. She on Plavix last dose was yesterday. During the course of stay the patient received 2 units of packed RBCs. Hemoglobin 8.4 Hematocrit 31.2 Patient received one dose of IV iron. Patient we will need to follow-up with her primary GI, occult blood was negative. and we will follow up with Dr. Beavers for referral hematology Dr. Parra . Patient is hemodynamically is stable for discharge. Denied chest pain shortness a breath palpitation dizziness lightheadedness. Assessment/Plan: Discharged Dx Profound anemia requiring blood transfusion POA electrolytes: Hyponatremia, Hypomagnesemia Hypokalemia POA Hx: severe gastritis POA Chronic problem hypertension hyperlipidemia PAD PLAN: ADMISSION DATE: 12/26/2024 DISCHARGE DATE: 12/27/2024 DISPOSITION: Home CONDITION: Stable QC CHEMIST(S): GI patient refused EGD FOLLOW UP APPOINTMENT(S): Follow-up PCP 2-[address] Beavers one-week patient will need a referral cell installer: DR Parra PROCEDURES: x2 blood transfusion IMAGING (S) report attached to summary : None MICROBIOLOGY: report attached to summary; none ACTIVITY: Ad kena HOME MEDICATIONS remain the same CHANGES ON HOME MEDICATIONS none NEW MEDICATIONS none TEACHING:continue with PUD's and follow up with primary GI. Emergency instructions: The patient was instructed to present to the nearest Emergency Department or call 911 should their symptoms return or worsen. Home Medications: Reported Medications Carvedilol (Coreg) 3.125 Mg Tablet, 3.125 MG PO BID, TAB 12/26/24 Lisinopril (Lisinopril) 20 Mg Tablet, 1 TAB PO DAILY for 30 Days, #30 TAB 0 Refills 12/26/24 Polyethylene Glycol 3350 (Miralax) 17 Gm Powd.pack, 17 GM PO DAILY 03/02/23 Clopidogrel Bisulfate (Clopidogrel) 75 Mg Tablet, 75 MG PO DAILY, TAB 01/26/23 Cilostazol (Cilostazol) 100 Mg Tablet, 100 MG PO BID, TAB 01/26/23 Atorvastatin Calcium (LIPITOR) 20 Mg Tab, 20 MG PO DAILY, TAB 11/08/22 Discontinued Reported Medications Sucralfate (Sucralfate) 1 Gm Tablet, 1 GM PO HS, TAB 03/05/23 Lisinopril (Lisinopril) 40 Mg Tablet, 40 MG PO DAILY, TAB 01/26/23 Carvedilol (Carvedilol) 6.25 Mg Tablet, 6.25 MG PO BID, TAB 01/26/23 Pantoprazole Sodium (Pantoprazole Sodium) 40 Mg Tablet.dr, 40 MG PO BID, TAB 01/26/23 Trazodone HCl (Trazodone HCl) 100 Mg Tablet, 100 MG PO HS PRN for INSOMNIA, TAB 01/26/23 Potassium Chloride (Potassium Chloride) 20 Meq Tablet.er, 20 MEQ PO AM, TAB 01/02/23 Duloxetine HCl (Cymbalta) 60 Mg Capsule.dr, 60 MG PO DAILY, CAP 11/08/22 Continued Medications: Atorvastatin Calcium (Lipitor) 20 Mg Tab 20 MG PO DAILY, TAB Carvedilol (Coreg) 3.125 Mg Tablet 3.125 MG PO BID, TAB Cilostazol (Cilostazol) 100 Mg Tablet 100 MG PO BID, TAB Clopidogrel Bisulfate (Clopidogrel) 75 Mg Tablet 75 MG PO DAILY, TAB Lisinopril (Lisinopril) 20 Mg Tablet 1 TAB PO DAILY for 30 Days, #30 TAB 0 Refills Polyethylene Glycol 3350 (Miralax) 17 Gm Powd.pack 17 GM PO DAILY Time spent arranging discharge: 31-60 minutes ATTESTATION BY PHYSICIAN I have seen and examined the patient. I reviewed the documentation, medical decision making, and treatment plan as noted by the mid-level provider above. I agree with the findings and plan of care. Nabila Lopez MD, ELIZABETH NP Dec 27, 2024 09:06
[2024-12-27] MEDS: IRON sUCROse COMPLEX 100 MG/5 ML VIAL IV ONE (09:32)
[2024-12-27] MEDS: CILOstazol 100 MG TAB PO SCH (09:32)
[2024-12-27] MEDS: LISINOPRIL 20 MG TABLET PO SCH (09:33)
[2024-12-27] MEDS: carVEDIlol 3.125 MG TABLET PO SCH (09:33)
[2024-12-27 11:00] VITALS: BP 129/57; PULSE 73; RESP 18; TEMP 98.5
--- NOTE | 2024-12-27 12:41 | NUR ---
PATIENT D/C HOME. NO S/S OF DISTRESS NOTED. PATIENT WHEELED DOWNSTAIRS AND TRANSFERRED TO PRIVATE VEHICLE
--- NOTE | 2024-12-27 14:27 | NUR ---
DCP/INITIAL ASSESSMENT Patient lives alone. She has no home services. DME: cane, rollator, standard walker, shower chair. Patient is able to complete ADLs but does not drive. PCP is Dr. Yordan Sim. Pharmacy is [facility] in [place]. Patient voiced no safety concerns regarding returning home and states she has no difficulty with housing or buying food. DCP is home. Addendum: 12/27/24 at 1430 by RUBEN GAMING SS Amended: Links added.
[2024-12-27] MEDS ORDERED: atorVAStatin 20 MG TABLET PO SCH (21:00)
== END 2024-12-27 12:50 | disposition home or self-care (01) ==
LOC: EDH 16:15 → INTOOBSV 17:08 → EDHIP 17:08 → 4BH 21:19
PROVIDERS: ADMIT Hospitalist; ATTEND Hospitalist
DX: D64.9 Anemia, unspecified (principal); E87.6 Hypokalemia; E87.1 Hypo-osmolality and hyponatremia; E83.42 Hypomagnesemia; E78.5 Hyperlipidemia, unspecified; I10 Essential (primary) hypertension; K29.70 Gastritis, unspecified, without bleeding; Z90.710 Acquired absence of both cervix and uterus; Z79.899 Other long term (current) drug therapy; Z87.891 Personal history of nicotine dependence
CPT/HCPCS: 80048 ×2; 99283; 99285; 83735 ×2; 80053; 85025 ×3; 86850; 86900; 86901; 86923 ×2; 36415 ×3; 36430 ×2; 84132; 85014; 85018; 96376; 96365; 96375; 82270; G0378; P9016 ×2; J2470 ×2; J3475; J0360; J1756

== ENCOUNTER → 2025-02-04 | Outpatient (CLI) | payer OTHER ==
[~2025-02-04] MED LIST changes: +CARV3.1262 PO; -CARV6.25 PO; -DULO60CA45 PO; +LISI20TA24 PO; -LISI40TA9 PO; -PANT40TA54 PO; -POTA-364 PO; -SUCR1TAB2 PO; -TRAZ-187 PO
== END | disposition home or self-care (01) ==
LOC: SHCH 13:03
PROVIDERS: ATTEND Student in an Organized Health Care Education/Training Program
DX: I08.0 Rheumatic disorders of both mitral and aortic valves (principal); I70.203 Unspecified atherosclerosis of native arteries of extremities, bilateral legs; I35.0 Nonrheumatic aortic (valve) stenosis
CPT/HCPCS: 93306; 93925

== ENCOUNTER → 2025-03-09 | Outpatient (CLI) | payer OTHER ==
[2025-03-09 11:47] LABS: ALBUMIN 3.4 g/dL (3.5-5.0); BILIRUBIN,TOTAL 0.6 mg/dL (0.2-1.0); CREATININE 0.7 mg/dL (0.5-1.0); POTASSIUM 3.9 mmol/L (3.5-5.1); TOTAL PROTEIN, SERUM 6.4 g/dL (6.0-8.3)
== END | disposition home or self-care (01) ==
LOC: LAB 10:34
PROVIDERS: ATTEND Student in an Organized Health Care Education/Training Program
DX: Z01.812 Encounter for preprocedural laboratory examination (principal); I70.302 Unspecified atherosclerosis of unspecified type of bypass graft(s) of the extremities, left leg
CPT/HCPCS: 36415; 80053

== ENCOUNTER → 2025-04-21 | Outpatient (CLI) | payer OTHER ==
--- NOTE | 2025-04-21 15:46 | HMCIMG ---
DEXA BONE DENSITY SURVEY REASON: Asymptomatic menopausal state COMPARISON: None TECHNIQUE: DEXA bone densitometry was performed in the lumbar spine and left hip. FINDINGS: Mean bone mass density in the spine is 1.062 g present with square, T score 0.1, within normal limits. Femoral neck T score however is -3.1 and total proximal femur T score -2.7 corresponding with osteoporosis. IMPRESSION: 1. Osteoporosis consistent with a high fracture risk.
--- NOTE | 2025-04-23 09:32 | HMCIMG ---
Exam Type: MAMMO SCREENING BILATERAL Clinical Information: REESTABLISH BASELINE Comparison: None Technique: Mammogram with CAD was performed with CC and MLO projections. CAD shows no worrisome regions. FINDINGS: The breasts are heterogeneously dense, which may obscure small masses. No dominant mass or suspicious microcalcification identified. There is no nipple retraction or skin thickening. Benign-appearing calcifications are seen. CAD shows no worrisome regions. IMPRESSION: 1. No mammographic signs of malignancy. 2. Routine follow-up recommended. CATEGORY 2: BENIGN FINDINGS Note: A negative x-ray should not delay biopsy if a dominant or clinically suspicious mass is present, since 8-10% of cancers are not identified by mammography. Dense breasts may obscure an underlying neoplasm.
== END | disposition home or self-care (01) ==
LOC: RAH 10:34
PROVIDERS: ATTEND Student in an Organized Health Care Education/Training Program
DX: Z12.31 Encounter for screening mammogram for malignant neoplasm of breast (principal); R92.333 Mammographic heterogeneous density, bilateral breasts; R92.1 Mammographic calcification found on diagnostic imaging of breast; M81.0 Age-related osteoporosis without current pathological fracture; Z78.0 Asymptomatic menopausal state
CPT/HCPCS: 77067; 77080